=== PATIENT | male | born 1960 | race Caucasian/White ===

== ENCOUNTER 2022-04-04 21:04 | Observation (INO) | payer BC, SELFPAY ==
[2022-04-04] VITALS (13 sets, daily range): BP systolic 157–163; BP diastolic 78–81; PULSE 80–91; RESP 17–28; TEMP 37.3; O2SAT 95–98
--- NOTE | ~2022-04-04 | XR_ITS ---
EXAMINATION: XR chest 2V DATE: 04/05/2022 03:22 INDICATION: Weakness TECHNIQUE: AP and lateral views of the chest are obtained. COMPARISON: 09/04/2013 FINDINGS: The lungs are free of acute opacities. No pleural effusion or pneumothorax. The cardiomedia stinal silhouette is normal. There is moderate thoracic spondylosis. 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 IMPRESSION: 1. No acute cardiopulmonary abnormality. Reviewed, dictated and finalized at location B.
--- NOTE | ~2022-04-04 | CT_ITS ---
EXAMINATION: CT BRAIN W/O DATE: 04/05/2022 03:19 INDICATION: [employer], weakness after fall. TECHNIQUE: Computed tomography (CT) of the head was performed without intravenous contrast. The dose- length product was 605.33 mGy-cm. Automated exposure control and iterative reconstruction technique w ere employed. COMPARISON: No prior studies for comparison. FINDINGS: Normal brain parenchymal volume for age. Normal medrano-white differentiation. No acute intrac ranial hemorrhage, infarction, mass or mass effect. No ventriculomegaly or midline shift. Midline sagittal images demonstrate a normal corpus callosum, c raniovertebral junction and sella turcica. Basilar cisterns are patent. Paranasal sinuses and mastoids are pneumatized. No depressed skull fractures. IMPRESSION: 1. No acute intracranial abnormality. Reviewed, dictated and finalized at location A.
--- NOTE | 2022-04-04 21:16 | ED.GENADULT ---
HPI - General Adult General Chief complaint: Weakness Stated complaint: WEAKNESS Time Seen by Provider: 04/04/22 21:14 History of Present Illness HPI narrative: 61-year-old male presented to the emergency department for evaluation of 2 days of generalized weakness with associated diarrhea. Patient denies any chest pain or shortness of breath. Patient denies any nausea vomiting patient denies any associate abdominal pain. Patient states he does have history of hypertension and diabetes. Patient states his diabetes is poorly controlled and does not check his blood sugars. Related Data Allergies Allergy/AdvReac Type Severity Reaction Status Date / Time iodine Allergy Swelling Verified 04/04/22 21:19 of the Eye 1 SEAFOOD Allergy Unknown Swelling Uncoded 04/04/22 21:19 of the Eye Review of Systems Review of Systems: CONSTITUTIONAL: Increased generalized weakness EYES: Denies visual changes, redness, or discharge. ENT: Denies rhinorrhea, congestion, sore throat, or otalgia. CARDIOVASCULAR: Denies chest pain, palpitations, or edema. RESPIRATORY: Denies cough or dyspnea. GASTROINTESTINAL: Denies abdominal pain but does report diarrhea, see HPI GENITOURINARY: Denies dysuria or hematuria. SKIN: Denies rash or itching. MUSCULOSKELETAL: Denies back pain, joint pain, or myalgia. NEUROLOGIC: Denies headache, numbness, or weakness. Exam Narrative: APPEARANCE: Well appearing, no pain, no distress, well-nourished. HEAD: normocephalic, atraumatic. EYES: PERRLA/EOMI, conjunctivae clear. NOSE: Normal no drainage EARS:TMS clear with good light reflex. NECK: Supple. No adenopathy, no masses. RESPIRATORY: Airway patent, respirations nonlabored. Clear to auscultation bilaterally, no rales, rhonchi, wheezing. CARDIOVASCULAR: Regular rate and rhythm without murmurs rubs or gallops. ABDOMINAL: Soft, nontender, nondistended, normal bowel sounds MUSCULOSKELETAL: Moves all extremities. Strength/ROM intact, No edema, No calf tenderness. NEURO: Alert. Cranial nerves II through XII intact. Good gait. Good coordination SKIN: Warm, dry. Normal Color Course Course Emergency Course: On patient's initial ambulation he still felt unsteady with his gait. Patient was treated with another liter of normal saline. Prior to ambulation patient states he felt improved. Patient did slip from the toilet while attempting to wipe himself. Patient denies any pain or injury from this. Patient's gait is too unsteady for discharge to home. Some of the patient's gait instability may be secondary to underlying neuropathy from his poorly controlled diabetes. Case was discussed with the hospitalist. Prior to admission a CT head and chest x-ray are being performed. X-ray: Cardiomegaly. No acute cardiopulmonary abnormality. CT showed no acute hemorrhage or infarct. Case was rediscussed with the hospitalist and patient will be admitted to [facility].. Vital Signs Vital signs: Vital Signs Temperature 99.2 F 04/04/22 21:10 Pulse Rate 91 04/04/22 21:10 Respiratory Rate 17 04/04/22 21:10 Blood Pressure 157/81 H 04/04/22 21:10 Pulse Oximetry 95 04/04/22 21:10 Oxygen Delivery Room Air 04/04/22 21:10 Temperature 99.2 F 04/04/22 21:10 Pulse Rate 85 04/05/22 00:03 Respiratory Rate 11 L 04/05/22 00:03 Blood Pressure 155/83 H 04/05/22 00:03 Pulse Oximetry 97 04/05/22 00:03 Oxygen Delivery Room Air 04/04/22 21:10 Medical Decision Making Vital Signs Vital Signs: Vital Signs Temperature 99.2 F 04/04/22 21:10 Pulse Rate 91 04/04/22 21:10 Respiratory Rate 17 04/04/22 21:10 Blood Pressure 157/81 H 04/04/22 21:10 Pulse Oximetry 95 04/04/22 21:10 Oxygen Delivery Room Air 04/04/22 21:10 Temperature 99.2 F 04/04/22 21:10 Pulse Rate 85 04/05/22 00:03 Respiratory Rate 11 L 04/05/22 00:03 Blood Pressure 155/83 H 04/05/22 00:03 Pulse Oximetry 97 04/05/22 00:03 Oxygen Delivery Room Air
[2022-04-04 21:32] LABS: Basophils Absolute Auto 0.1 K/mm3 (0.0-0.1); Basophils Percent Auto 0.4 % (0.2-1.2); Hematocrit 42.3 % (42.0-52.0); Hemoglobin 14.7 g/dL (14.0-18.0); Immature Granulocyte Absolute 0.16 K/mm3 (0.00-0.031); Immature Granulocyte Percent A 0.8 % (0-0.5); Lymphocytes Absolute Auto 1.07 K/mm3 (0.9-3.2); Lymphocytes Percent Auto 5.6 % (18.3-44.2); Mean Corpuscular HGB Conc 34.8 g/dl (32-36); Mean Corpuscular Hemoglobin 29.6 pg (26-34); Mean Corpuscular Volume 85.1 fl (80-100); Mean Platelet Volume 9.1 fl (7.4-10.4); Monocytes Absolute Auto 1.1 K/mm3 (0.1-0.6); Monocytes Percent Auto 5.5 % (2.6-8.5); Neutrophils Absolute Auto 16.8 K/mm3 (1.3-6.7); Neutrophils Percent Auto 87.7 % (45.5-73.1); Platelet Count Result 203 k/mm3 (150-375); Red Blood Count 4.97 M/mm3 (4.6-6.20); Red Cell Distribution Width 12.9 % (11.5-14.5); White Blood Count 19.2 K/mm3 (4.5-10.0)
[2022-04-04 21:56] LABS: Lactic Acid Reflex 3.4 mmol/L (0.7-2.0)
[2022-04-04 21:57] LABS: Alanine Aminotransferase 24 U/L (6-50); Albumin Level 3.8 g/dL (3.5-5.1); Alkaline Phosphatase 75 U/L (38-126); Anion Gap 12 mmol/L (8-16); Aspartate Amino Transferase 24 U/L (17-59); Bilirubin,Total 0.7 mg/dL (0.2-1.3); Blood Urea Nitrogen 20 mg/dL (9-20); Calcium 8.2 mg/dL (8.4-10.2); Carbon Dioxide 20 mmol/L (22-30); Chloride 98 mmol/L (98-107); Estimated CRCL calculation 77 ml/min; Estimated Glomerular Filt Rate > 60; Glucose 340 mg/dL (65-110); Lipase 112 U/L (23-300); Potassium 3.6 mmol/L (3.4-5.0); Sodium 130 mmol/L (137-145)
[2022-04-04] MEDS: SODIUM CHLORIDE 0.9% IV 1,000 ML 999 ML IV CONT (22:05)
[2022-04-04 22:10] LABS: Appearance Urine Clear (Clear); Bilirubin Urine Negative (Negative); Blood Urine Negative (Negative); Color Urine Yellow (Yellow); Glucose Urine UA 3+ mg/dL (Negative); Ketones Urine 1+ mg/dL (Negative); Leukocyte Esterase Ur Negative LEU/UL (Negative); Nitrate Urine Negative (Negative); Protein Urine 2+ mg/dL (Negative); Specific Grav Ur 1.025 (1.001-1.035); Urobilinogen Urine 0.2 mg/dL (<2.0); pH Urine 5.5 (5.0-9.0)
[2022-04-04 22:12] LABS: SARS-CoV-2 RNA PCR Negative
[2022-04-04 22:16] LABS: Mucus Urine Rare /lpf; RBC Urine 0-2 /hpf (0-2); Squamous Epithelial Cell Urine Rare /hpf (Few); WBC Urine 0-3 /hpf
[2022-04-04 22:22] LABS: Add Urine Microscopic? YES
[2022-04-04 23:45] LABS: Toxigenic C. Diff NEGATIVE (NEGATIVE)
[2022-04-05] VITALS (44 sets, daily range): BP systolic 125–155; BP diastolic 56–89; PULSE 60–85; RESP 11–31; TEMP 36.5–37.4; O2SAT 91–100; BMI 31.3
[2022-04-05] MEDS: SODIUM CHLORIDE 0.9% IV 1,000 ML 999 ML IV CONT (00:08)
[2022-04-05 00:29] LABS: Reflex Lactic Acid Yes or No Add Lactic
[2022-04-05 00:52] LABS: Lactic Acid 2.1 mmol/L (0.7-2.0)
[2022-04-05] MEDS: MECLIZINE HCL 25 MG TABLET PO (03:25)
--- NOTE | 2022-04-05 06:39 | ADMGEN ---
This patient, Bienvenido Trent, was admitted to 3 Med Surg Room 306-02. Patient/family oriented to hospital policies and general routines including ID bracelet, bed and alarms, visiting hours, pain management, procedures, bathroom and other care routines, personal items, smoking policy, room service/diet, and visiting hours. Information on how to activate the Rapid Response Team has been discussed. Patient/Family are encouraged to report perceived risks to care and to ask questions if they do not understand what they are told or what they should do.
--- NOTE | 2022-04-05 11:54 | PC.NURSE ---
To GI lab via [employer] @ [id number].
[2022-04-05] MEDS: amLODIPine BESYLATE 5 MG TABLET 10 MG BY MOUTH (12:06)
[2022-04-05] MEDS: VALSARTAN 160 MG TABLET 320 MG PO (12:06)
[2022-04-05] MEDS: allopurinoL 100 MG TABLET PO ×2 (12:06→17:20)
--- NOTE | 2022-04-05 12:50 | PM.IMHP ---
H&P: HPI History of Present Illness Date/Time: 04/05/22 12:50 Chief Complaint: 61-year-old male presented to the emergency department for evaluation of 2 days of generalized weakness with associated diarrhea.? Patient denies any chest pain or shortness of breath.? Patient denies any nausea vomiting patient denies any associate abdominal pain. Patient reports prior to this the day before yesterday he felt fine. And her later last week he is able to cut his grass which is 2 acres. No prior history of anything like this happen. Also to note patient had sinus infection recent history with 2 antibiotics and steroids. He finished these a couple days prior to the incident. Patient states he does have history of hypertension and diabetes.? Patient states his diabetes is poorly controlled and does not check his blood sugars Review of Systems Review of Systems: 10 point ROS negative except as stated in HPI / Subjective PMFSH Social History Social History Smoking status: Current every day smoker Tobacco type: cigars Second hand tobacco smoke exposure: Yes Additional smoking assessment comments: 2 cigars daily Alcohol intake: never Substance use: never Living arrangements: alone Gender identity (if verbalized by the patient): Male Spiritual care concerns: No Meds Home Medications and Allergies Home Medications Medication Instructions Recorded Confirmed Type allopurinol 100 mg tablet 100 tablet PO BID 04/05/22 04/05/22 History amlodipine 10 mg-valsartan 320 mg 1 tablet PO DAILY 04/05/22 04/05/22 History tablet dapagliflozin 10 mg tablet 1 tablet PO DAILY 04/05/22 04/05/22 History ([facility]) metformin 500 mg tablet,extended 2 tablet PO BID 04/05/22 04/05/22 History release 24 hr ondansetron 4 mg disintegrating 4 mg PO Q6H PRN nausea and 04/05/22 Rx tablet vomiting #14 tabs Allergies Allergy/AdvReac Type Severity Reaction Status Date / Time iodine Allergy Swelling Verified 04/04/22 21:19 of the Eye 1 SEAFOOD Allergy Unknown Swelling Uncoded 04/04/22 21:19 of the Eye Vital Signs Vital Signs - 24 hr 04/04/22 21:10 04/04/22 21:16 04/04/22 21:20 Temperature 99.2 F Pulse Rate 91 91 89 Respiratory Rate 17 25 H Blood Pressure 157/81 H 163/78 H Pulse Oximetry 95 95 Oxygen Delivery Room Air 04/04/22 21:20 04/04/22 21:30 04/04/22 21:56 Temperature Pulse Rate 90 88 91 Respiratory Rate 27 H 18 28 H Blood Pressure Pulse Oximetry 96 95 Oxygen Delivery 04/04/22 22:00 04/04/22 22:15 04/04/22 22:30 Temperature Pulse Rate 85 83 81 Respiratory Rate 18 21 H 22 H Blood Pressure Pulse Oximetry 96 95 97 Oxygen Delivery 04/04/22 22:45 04/04/22 23:00 04/04/22 23:15 Temperature Pulse Rate 82 81 82 Respiratory Rate 21 H 22 H 19 Blood Pressure Pulse Oximetry 98 96 96 Oxygen Delivery 04/04/22 23:30 04/04/22 23:45 04/05/22 00:01 Temperature Pulse Rate 83 80 Respiratory Rate 17 21 H Blood Pressure Pulse Oximetry 95 96 97 Oxygen Delivery 04/05/22 00:03 04/05/22 00:04 04/05/22 00:15 Temperature Pulse Rate 85 83 80 Respiratory Rate 11 L 19 30 H Blood Pressure 155/83 H Pulse Oximetry 97 96 93 Oxygen Delivery 04/05/22 00:16 04/05/22 00:30 04/05/22 00:31 Temperature Pulse Rate 81 79 82 Respiratory Rate 25 H 26 H 28 H Blood Pressure 134/58 L 147/73 H Pulse Oximetry 95 94 95 Oxygen Delivery 04/05/22 00:45 04/05/22 00:46 04/05/22 01:00 Temperature Pulse Rate 79 79 79 Respiratory Rate 30 H 20 25 H Blood Pressure 135/73 134/68 Pulse Oximetry 97 95 97 Oxygen Delivery 04/05/22 01:01 04/05/22 01:15 04/05/22 01:16 Temperature Pulse Rate 77 79 76 Respiratory Rate 17 24 H 27 H Blood Pressure 135/71 Pulse Oximetry 100 95 94 Oxygen Delivery 04/05/22 01:30 04/05/22 01:31 04/05/22 01:45 Temperature Pulse
[2022-04-05 16:53] LABS: Glucose Point of Care 224 mg/dl (65-105)
[2022-04-05] MEDS: ACETAMINOPHEN 325 MG TABLET 650 MG PO (17:20)
[2022-04-05] MEDS: INSULIN ASPART (*BKC) 100 UNITS/ML SUB-Q (17:21)
[2022-04-05 20:05] LABS: Glucose Point of Care 295 mg/dl (65-105)
[2022-04-06 06:00] VITALS: BP 157/90; PULSE 72; RESP 18; TEMP 36.2; O2SAT 97
[2022-04-06 08:10] LABS: Glucose Point of Care 244 mg/dl (65-105)
[2022-04-06] MEDS: INSULIN ASPART (*BKC) 100 UNITS/ML SUB-Q ×2 (09:35→11:41)
[2022-04-06] MEDS: allopurinoL 100 MG TABLET PO ×2 (09:35→17:34)
[2022-04-06] MEDS: amLODIPine BESYLATE 5 MG TABLET 10 MG BY MOUTH (09:36)
[2022-04-06] MEDS: VALSARTAN 160 MG TABLET 320 MG PO (09:36)
[2022-04-06 10:01] LABS: Hematocrit 41.8 % (42.0-52.0); Hemoglobin 13.9 g/dL (14.0-18.0); Mean Corpuscular HGB Conc 33.3 g/dl (32-36); Mean Corpuscular Volume 87.3 fl (80-100); Mean Platelet Volume 9.1 fl (7.4-10.4); Platelet Count Result 178 k/mm3 (150-375); Red Blood Count 4.79 M/mm3 (4.6-6.20); Red Cell Distribution Width 12.9 % (11.5-14.5); White Blood Count 8.6 K/mm3 (4.5-10.0)
[2022-04-06 10:31] LABS: Anion Gap 10 mmol/L (8-16); Blood Urea Nitrogen 12 mg/dL (9-20); Calcium 8.2 mg/dL (8.4-10.2); Carbon Dioxide 20 mmol/L (22-30); Chloride 106 mmol/L (98-107); Estimated CRCL calculation 97 ml/min; Estimated Glomerular Filt Rate > 60; Glucose 408 mg/dL (65-110); Potassium 3.2 mmol/L (3.4-5.0); Sodium 136 mmol/L (137-145)
[2022-04-06 11:19] LABS: Glucose Point of Care 369 mg/dl (65-105)
[2022-04-06 11:26] VITALS: PULSE 78; O2SAT 99
[2022-04-06 14:00] VITALS: BP 141/77; PULSE 74; RESP 16; TEMP 36.1; O2SAT 96
--- NOTE | 2022-04-06 16:06 | PM.IMPN ---
Progress Note: A&P Assessment and Plan (1) Diarrhea: Code(s): R19.7 - Diarrhea, unspecified Status: Acute Assessment and Plan: Workup still pending, C diff is negative. Continue supportive care. If diarrhea persists consider rechecking see deficits he did have antibiotic exposure. 04/06/2022 interval history: patient with diarrhea C diff is negative, stool is positive for campylobacter, however patient frequency of stool is improving and denies abdominal pain nausea or vomiting tolerating his diet, her white counts trending, will continue hydration and monitor patient and further recommendation to follow (2) General weakness: Code(s): R53.1 - Weakness Status: Acute Assessment and Plan: PTOT Prior to this viral illness or diarrheal illness he had been doing well without any weakness or excessive fatigue. (3) Diabetes: Code(s): E11.9 - Type 2 diabetes mellitus without complications Status: Acute Assessment and Plan: Monitor blood sugars (4) Gout: Code(s): M10.9 - Gout, unspecified Status: Acute Assessment and Plan: Continue home med (5) Hypertension: Code(s): I10 - Essential (primary) hypertension Status: Acute Assessment and Plan: Continue home med Subjective Date/time seen: 04/06/22 16:06 04/06/2022 interval history: patient with diarrhea C diff is negative, stool is positive for campylobacter, however patient frequency of stool is improving and denies abdominal pain nausea or vomiting tolerating his diet, her white counts trending, will continue hydration and monitor patient and further recommendation to follow Review of Systems Review of Systems: 10 point ROS negative except as stated in HPI / Subjective Exam Narrative: moderately obese Patient is comfortable, NAD HEENT: eyes are clear and none icteric LUNGS: normal respiratory effort ABD: BS+, Soft and nontender Lower extremities: no edema SKIN: nonjaundiced Neuro: grossly intact. Objective Data Vital Signs Vital Signs: Vital Signs - 24 hr 04/05/22 17:20 04/05/22 22:00 04/06/22 06:00 Temperature 98.7 F 97.7 F 97.2 F L Pulse Rate 60 72 Respiratory Rate 16 18 Blood Pressure 125/72 157/90 H Pulse Oximetry 98 97 Oxygen Delivery 04/06/22 11:26 04/06/22 14:00 Temperature 96.9 F L Pulse Rate 78 74 Respiratory Rate 16 Blood Pressure 141/77 H Pulse Oximetry 99 96 Oxygen Delivery Room Air Intake/Output Intake/Output: Intake & Output 04/03/22 04/04/22 04/05/22 04/06/22 23:59 23:59 23:59 23:59 Intake Total 1000 2279 1510 Output Total 0 Balance 1000 2279 1510 Meds/Results Medications: Active Medications Generic Name Dose Route Start Last Admin Trade Name Freq PRN Reason Stop Dose Admin Acetaminophen 650 mg 04/05/22 17:00 04/05/22 17:20 Acetaminophen 325 Mg Tablet PO 650 mg Q6H PRN Administration Mild Pain (1-3) or Fever Allopurinol 100 mg 04/05/22 09:00 04/06/22 09:35 Allopurinol 100 Mg Tablet PO 100 mg BID BEST Administration Amlodipine Besylate 10 mg 04/05/22 09:00 04/06/22 09:36 Amlodipine Besylate 5 Mg Tablet BY MOUTH 10 mg DAILY BEST Administration Dextrose 12.5 gm 04/05/22 12:54 Dextrose 50% 25 Gm/50 Ml Syringe IV PUSH PRN PRN Hypoglycemia Protocol Glucagon 1 mg 04/05/22 12:54 Glucagon For Inj 1 Mg Vial IM PRN PRN Hypoglycemia Protocol Glucose 15 gm 04/05/22 12:54 Glucose Oral Gel 15 Gm Of Glucse In 37.5 Gm Tube PO PRN PRN Hypoglycemia Protocol Dextrose 1,000 mls @ 100 mls/hr 04/05/22 12:54 Dextrose 5% 1,000 Ml IVPB PRN PRN Hypoglycemia Protocol Insulin Aspart 2 - 5 units 04/05/22 12:00 04/06/22 11:41 Insulin Aspart (*Bkc) 100 Units/Ml SUB-Q 5 units TIDWM BEST Administration Protocol Ondansetron HCl 4 mg 04/05/22 04:01 Ondansetron Inj 4 Mg/2 Ml Vi
[2022-04-06 17:59] LABS: Glucose Point of Care 176 mg/dl (65-105)
[2022-04-06 22:00] VITALS: BP 157/83; PULSE 80; RESP 16; TEMP 37.7; O2SAT 100
[2022-04-07 06:00] VITALS: BP 125/60; PULSE 62; RESP 16; TEMP 36.6; O2SAT 97
[2022-04-07 07:47] LABS: Glucose Point of Care 184 mg/dl (65-105)
[2022-04-07 08:00] LABS: Hemoglobin 13.2 g/dL (14.0-18.0); Mean Corpuscular HGB Conc 34.7 g/dl (32-36); Mean Corpuscular Hemoglobin 29.3 pg (26-34); Mean Corpuscular Volume 84.4 fl (80-100); Mean Platelet Volume 9.3 fl (7.4-10.4); Platelet Count Result 202 k/mm3 (150-375); Red Cell Distribution Width 12.5 % (11.5-14.5); White Blood Count 8.9 K/mm3 (4.5-10.0)
[2022-04-07 08:11] LABS: Anion Gap 4 mmol/L (8-16); Blood Urea Nitrogen 7 mg/dL (9-20); Calcium 8.2 mg/dL (8.4-10.2); Carbon Dioxide 29 mmol/L (22-30); Chloride 106 mmol/L (98-107); Estimated CRCL calculation 97 ml/min; Estimated Glomerular Filt Rate > 60; Glucose 178 mg/dL (65-110); Magnesium 1.8 mg/dL (1.6-2.3); Potassium 3.4 mmol/L (3.4-5.0); Sodium 139 mmol/L (137-145)
--- NOTE | 2022-04-07 09:19 | PM.DS ---
DS: Admitting Diagnosis Discharge Date 04/07/2022 Admitting Diagnosis diarrhea DS: Discharge Diagnosis Discharge Diagnosis (1) Diarrhea: Code(s): R19.7 - Diarrhea, unspecified Status: Acute Assessment and Plan: Workup still pending, C diff is negative. Continue supportive care. If diarrhea persists consider rechecking see deficits he did have antibiotic exposure. 04/06/2022 interval history: patient with diarrhea C diff is negative, stool is positive for campylobacter, however patient frequency of stool is improving and denies abdominal pain nausea or vomiting tolerating his diet, her white counts trending, will continue hydration and monitor patient and further recommendation to follow (2) General weakness: Code(s): R53.1 - Weakness Status: Acute Assessment and Plan: PTOT Prior to this viral illness or diarrheal illness he had been doing well without any weakness or excessive fatigue. (3) Diabetes: Code(s): E11.9 - Type 2 diabetes mellitus without complications Status: Acute Assessment and Plan: Monitor blood sugars (4) Gout: Code(s): M10.9 - Gout, unspecified Status: Acute Assessment and Plan: Continue home med (5) Hypertension: Code(s): I10 - Essential (primary) hypertension Status: Acute Assessment and Plan: Continue home med DS: Summary Hospital Course Reason for hospitalization: Chief Complaint: 61-year-old male presented to the emergency department for evaluation of 2 days of generalized weakness with associated diarrhea.? Patient denies any chest pain or shortness of breath.? Patient denies any nausea vomiting patient denies any associate abdominal pain. Patient reports prior to this the day before yesterday he felt fine.? And her later last week he is able to cut his grass which is 2 acres.? No prior history of anything like this happen.? Also to note patient had sinus infection recent history with 2 antibiotics and steroids.? He finished these a couple days prior to the incident. Patient states he does have history of hypertension and diabetes.? Patient states his diabetes is poorly controlled and does not check his blood sugars Hospital Course: ?patient with diarrhea C diff is negative,? stool is positive for campylobacter,? however patient frequency of stool is improving? and denies abdominal pain nausea or vomiting tolerating his diet,? his white counts trending down will continue hydration and monitor patient and further recommendation to follow today patient remains clinically stable his bowel movements have improved, he is able to tolerate his diet will discharge the patient today Time Spent with Patient Time attestation: Total time spent providing and/or coordinating discharge services: Exam Narrative: moderately obese Patient is comfortable, NAD HEENT: eyes are clear and none icteric LUNGS: normal respiratory effort ABD: BS+, Soft and nontender Lower extremities: no edema SKIN: nonjaundiced Neuro: grossly intact. DS: Data Data Completed and Pending Labs on day of discharge: Labs from last 24 hours 04/07/22 04/07/22 04/07/22 07:46 07:46 07:45 WBC 8.9 RBC 4.50 L Hgb 13.2 L Hct 38.0 L MCV 84.4 MCH 29.3 MCHC 34.7 RDW 12.5 Plt Count 202 MPV 9.3 Sodium 139 Potassium 3.4 Chloride 106 Carbon Dioxide 29 Anion Gap 4 L BUN 7 L D Creatinine 0.70 Estim Creat Clear Calc 97 Estimated GFR > 60 Glucose 178 H POC Capillary Glucose 184 H Calcium 8.2 L Magnesium 1.8 04/06/22 04/06/22 04/06/22 16:33 11:06 09:52 WBC RBC Hgb Hct MCV MCH MCHC RDW Plt Count MPV Sodium 136 L Potassium 3.2 L Chloride 106 Carbon Dioxide 20 L Anion Gap 10 BUN 12 D Creatinine 0.70 Estim Creat Clear Calc 97 Estimated GFR > 60 Glucose 408 H POC Capillary Glucos
[2022-04-07] MEDS: VALSARTAN 160 MG TABLET 320 MG PO (09:41)
[2022-04-07] MEDS: allopurinoL 100 MG TABLET PO (09:42)
[2022-04-07] MEDS: amLODIPine BESYLATE 5 MG TABLET 10 MG BY MOUTH (09:42)
[2022-04-07] MEDS: POTASSIUM CHLORIDE 20 MEQ TABLET 40 MEQ PO (11:08)
== END 2022-04-07 11:55 | disposition home or self-care (01) ==
LOC: ANHED 04-05 02:49 → ANH3MEDSUR 04-05 06:11
PROVIDERS: Admitting Provider Internal Medicine; Emergency Provider Emergency Medicine; Visit Provider Family Medicine
DX: R19.7 Diarrhea, unspecified (principal); R53.1 Weakness; I10 Essential (primary) hypertension; E11.9 Type 2 diabetes mellitus without complications; M10.9 Gout, unspecified; F17.290 Nicotine dependence, other tobacco product, uncomplicated; Z79.84 Long term (current) use of oral hypoglycemic drugs; Z20.822 Contact with and (suspected) exposure to COVID-19
CPT/HCPCS: 36415; 70450; 71046; 80048; 80053; 81001; 82948; 83605; 83690; 83735; 85025; 85027; 87045; 87269; 87272; 87427; 87493; 89055; 96360; 96361; 97110; 97161; 97165; 97530; 97535; 99285; A9270; C9803; G0378; J1815; J7030; U0003; U0005

== ENCOUNTER 2025-04-04 11:55 | Emergency (ER) | payer MEDICARE, SELFPAY ==
--- NOTE | ~2025-04-04 | XR_ITS ---
HISTORY: Avulsion from [place] COMPARISON: None TECHNIQUE: 2 views of the right first digit were performed. FINDINGS: No acute displaced fracture. Joint spaces are narrowed with osteophyte formation versus a possible avulsion fracture of the proxim al radial margin of the proximal phalanx of the first digit. The alignment is maintained. Soft tissues are unremarkable without radiopaque foreign body. Age-appropriate mineralization. IMPRESSION: Findings which may be secondary to degenerative disease versus an acute avulsion fractur e along the proximal radial margin of the proximal phalanx of the first digit. Reviewed, dictated and finalized at location A. IMPRESSION: Findings which may be secondary to degenerative disease versus an acute avulsion fracture along the proximal radial margin of the proximal phalan x of the first digit.
[2025-04-04 11:55] VITALS: BP 164/77; PULSE 83; RESP 16; TEMP 36.3; O2SAT 99
--- OUTSIDE RECORDS SUMMARY | 2025-04-04 11:57 | XMS_ITS | Data Portability ---
Author Organization [facility] [employer], Main Office Address [address] [place] [address] Assessment No assessment recorded. Plan of Treatment Reminders Order Date Submit Date Provider Last Modified By Organization Details Last Modified Time Details Appointments None recorded. Lab glycohemog lobin, total, blood 2023 024 [facility] (Lab), [address] [place], [address], 4 15:41:02 hemoglobin A1C, fingerstic k [address] [place], [place], [address], 4 15:22:19 PSA, total, serum or plasma 2022 023 [facility] (Lab), [address] [place], [address], 3 19:53:57 hemoglobin A1C, fingerstic k [address] [place], [place], [address], 3 11:37:47 microalbum in, urine 2022 023 [facility] (Lab), [address] [place], [address], 3 18:58:17 lipid panel, serum 2022 023 [facility] (Lab), [address] [place], [address], 3 18:59:23 CMP, serum or plasma 2022 023 [facility] (Lab), [address] [place], [address], 3 18:59:29 Referral None recorded. Procedures None recorded. Surgeries None recorded. Imaging None recorded. Medication Orders gabapentin 300 mg capsule 2023 024 [id number] [address] [place] [address], [address], 4 12:35:23 valacyclov ir 1 gram tablet 2023 024 [facility], [address] [place], [address], 4 12:51:17 Depo-Medro l 80 mg/mL suspension for injection 2023 024 [email or web address] Not available 14:37:34 amoxicilli n 875 mg-potassi um clavulanat e 125 mg tablet 2023 024 [email or web address] [facility] #2510, [address] [place], [address], 4 12:30:01 ibuprofen 800 mg tablet 2023 024 [facility]acy #2510, [address] [place], [address], 4 11:35:40 Trulicity 0.75 mg/0.5 mL subcutaneo us pen injector 2023 024 [email or web address] 00 [facility] #2510, [address] [place], [address], 4 11:38:08 allopurino l 300 mg tablet 2023 024 [facility] #2510, [address] [place], [address], 4 11:05:27 metformin ER 500 mg tablet,ext ended release 24 hr 2023 024 [facility] [address] [place], [address], 4 11:08:06 Ozempic 2 mg/dose (8 mg/3 mL) subcutaneo us pen injector 2023 024 [facility] [address] [place], [address], 4 11:20:36 Patient TargetsNo targets recorded. Patient Instructions Encounter Date Encounter Id Patient Instructions Last Modified By Organization Details Last Modified Time 02/06/2024 [id number] finish antibioti c . [email or web address] Not available 02/14/2024 16:48:38 Reason for Referral None Reported. Results Created Date Observation Date Name Description Value Unit Range Abnormal Flag Note LastModifiedBy Organization Detail LastModifiedTime 04/20/2004/20/2023 MICRO ALBUM IN RANDO M URINE microalbumin , urine 26.3 mg/L 0.0-16 .6 high Not Available [facility] (Lab) [address] [place], [address], 04/20/2023 18:58:17 04/20/20 23 04/20/2023 LIPID PANEL cholesterol 66 mg/dL 140-19 9 low NIH AARON NSUS RECOM MENDA TION FOR SHAHEEN STERO L: ADULT CHILD LOW RISK: <200 <170 BORDE RLINE : <200- 239 ----- HIGH RISK: >240 >200 Not Available [facility] (Lab) [address] [place], [address], 04/20/2023 18:59:23 04/20/20 23 04/20/2023 LIPID PANEL triglyceride s 63 mg/dL 0-150 NIH AARON NSUS REPOR T RECOM MENDA TION FOR TRIGL YCERI PAOLA: ADULT CHILD LOW RISK: <150 ----- BODER LINE: 150-1 99 ----- HIGH RISK: >200 ----- Not Available [facility] (Lab) [address] [place], [address], 04/20/2023 18:59:23 04/20/20 23 04/20/2023 LIPID PANEL HDL cholesterol 33 mg/dL 40- low Not Available [facility] (Lab) [address] [place], [address], 04/20/2023 18:59:23 04/20/20 23 04/20/2023 LIPID PANEL LDL cholesterol, calculated 20 mg/dL 0-130 NIH AARON NSUS REPOR T RECOM MENDA TIONS FOR LDL: ADULT CHILD LOW RISK <130 <110 (OPTI MAL LDL) <100 ----- BORDE RLINE : 130-1 59 ----- HIGH RISK: >160 >130 A TRIGL YCERI DE RESUL T >400 INVAL IDATE S THE CALCU LATIO N FOR LDL FRACT IONAT ION - THE LDL RESUL T WILL NOT BE REPOR NICOLETTE. Not Available [facility] (Lab) [address] [place], [address], 04/20/2023 18:59:23 04/20/20 23 04/20/2023 COMPR EHENS MACHO METAB OLIC PANEL sodium 138 mmol/ L 137-14 5 Not Available [facility] (Lab) [address] [place], [address], 04/20/2023 18:59:28 04/20/20 23 04/20/2023 COMPR EHENS MACHO METAB OLIC PANEL potassium 4.8 mmol/ L 3.5-5. 1 Not Available [facility] (Lab) [address] [place], [address], 04/20/2023 18:59:28 04/20/20 23 04/20/2023 COMPR EHENS MACHO METAB OLIC PANEL chloride 101 mmol/ L 98-107 Not Available [facility] (Lab) [address] [place], [address], 04/20/2023 18:59:28 04/20/20 23 04/20/2023 COMPR EHENS MACHO METAB OLIC PANEL carbon dioxide 27 mmol/ L 22-30 Not Available [facility] (Lab) [address] [place], [address], 04/20/2023 18:59:28 04/20/20 23 04/20/2023 COMPR EHENS MACHO METAB OLIC PANEL anion gap 14.8 mmol/ L 14-22 Not Available [facility] (Lab) [address] [place], [address], 04/20/2023 18:59:28 04/20/20 23 04/20/2023 COMPR EHENS MACHO METAB OLIC PANEL glucose 138 mg/dL 70-99 high Not Available [facility] (Lab) [address] [place], [address], 04/20/2023 18:59:28 04/20/20 23 04/20/2023 COMPR EHENS MACHO METAB OLIC PANEL BUN 10 mg/dL 8-19 Not Available [facility] (Lab) [address] [place], [address], 04/20/2023 18:59:28 04/20/20 23 04/20/2023 COMPR EHENS MACHO METAB OLIC PANEL creatinine 0.61 mg/dL 0.66-1 .25 low Not Available [facility] (Lab) [address] [place], [address], 04/20/2023 18:59:28 04/20/20 23 04/20/2023 COMPR EHENS MACHO METAB OLIC PANEL GFR >60 Refer ence Range : [place] [facility] GFR Healt hy Adult : >60 mL/mi n/1.7 3 m2 Chron ic Kidne y Disea se: 15-60 mL/mi n/1.7 3 m2 Kidne y Failu re: <15/m L/min /1.73 m2 www.n iddk. nih.g ov The MDRD study equat ion has not been valid ated in child lorne <18 years of age; pregn ant women ; the elder ly >85 years of age; or in some racia l or ethni c subgr oups, such as Hispa nics. Outsi de the valid ated padmini eters , estim ated GFR is less accur ate, requi ring clini aurelio judgm ent on a case- by-ca se basis . Clini aurelio inter preta tion for other races and ages must be made by the clini elva. The MDRD study equat ion has not been valid ated for the evalu ation of serum creat inine relat ed to nutri romie l statu s or medic ation usage . For perso ns <18 years of age, a pedia tric GFR calcu lator is avail able on the [facility] websi te: https ://jarad aguilar.loree de la cruz.o brad/mynor sullivan s/victor mo qi/gf r_cal culat or Not Available [facility] (Lab) [address] [place], [address], 04/20/2023 18:59:28 04/20/20 23 04/20/2023 COMPR EHENS MACHO METAB OLIC PANEL alkaline phosphatase 81 U/L 38-126 Not Available [facility] (Lab) [address] [place], [address], 04/20/2023 18:59:28 04/20/20 23 04/20/2023 COMPR EHENS MACHO METAB OLIC PANEL alanine aminotransfe rase 25 U/L 0-50 Not Available [facility] (Lab) [address] [place], [address], 04/20/2023 18:59:28 04/20/20 23 04/20/2023 COMPR EHENS MACHO METAB OLIC PANEL aspartate aminotransfe rase 32 U/L 15-46 Not Available [facility] (Lab) [address] [place], [address], 04/20/2023 18:59:28 04/20/20 23 04/20/2023 COMPR EHENS MACHO METAB OLIC PANEL bilirubin, total 0.40 mg/dL 0.20-1 .30 Not Available [facility] (Lab) [address] [place], [address], 04/20/2023 18:59:28 04/20/20 23 04/20/2023 COMPR EHENS MACHO METAB OLIC PANEL calcium 9.1 mg/dL 8.4-10 .2 Not Available [facility] (Lab) [address] [place], [address], 04/20/2023 18:59:28 04/20/20 23 04/20/2023 COMPR EHENS MACHO METAB OLIC PANEL total protein 6.7 g/dL 6.3-8. 2 Not Available [facility] (Lab) [address] [place], [address], 04/20/2023 18:59:28 04/20/20 23 04/20/2023 COMPR EHENS MACHO METAB OLIC PANEL albumin 3.9 g/dL 3.0-4. 4 Not Available [facility] (Lab) [address] [place], [address], 04/20/2023 18:59:28 04/20/20 23 04/20/2023 COMPR EHENS MACHO METAB OLIC PANEL globulin 2.8 g/dL 2.6-4. 2 Not Available [facility] (Lab) [address] [place], [address], 04/20/2023 18:59:28 04/20/20 23 04/20/2023 COMPR EHENS MACHO METAB OLIC PANEL A/G ratio 1.4 ratio 1.0-2. 0 Not Available [facility] (Lab) [address] [place], [address], 04/20/2023 18:59:28 04/20/20 23 04/20/2023 PSA SCREE N PSA medicare screen 1.61 NG/mL 0.00-4 .00 Not Available [facility] (Lab) [address] [place], [address], 04/20/2023 19:53:57 04/20/20 23 04/20/2023 hemog lobin A1C, finge rstic k HgbA1C 6.7 Not Available [address] [place], [place], [address], 04/20/2023 11:25:49 10/10/19 24 10/10/2023 hemog lobin A1C, finge rstic k HgbA1C 7.8 Not Available [address] [place], [place], [address], 10/10/2023 11:00:19 03/11/20 24 03/11/2024 MRI, head + neck + orbit s, w/wo contr ast No observ ation record ed. [email or web address] [facility] [address] [place], [address], 08/26/2024 11:22:21 03/11/20 24 03/11/2024 MRI, head + neck + orbit s, w/wo contr ast No observ ation record ed. [email or web address] [facility] [address] [place], [address], 08/23/2024 17:14:08 Result Notes None recorded. Problems Name Problem SNOMED Code Status Onset Date Resolution Date Notes Provider Name and Address Organization Details Recorded Time Pain in left sacroiliac joint 9069062083542 9102 Active 2020 Not Available [facility] 4 06:55:23 Pain in throat 029038410 Active Not Available [facility] 4 06:55:23 Steatotic liver disease 473242720 Active 2017 Not Available [facility] 4 06:55:23 Lumbar sprain 875810273 Active Not Available [facility] 4 06:55:23 Pneumonia 658990412 Active Not Available [facility] 4 06:55:23 Fluid level behind tympanic membrane Active Not Available [facility] 4 06:55:23 Retinal disorder 33487672 Active 2018 Not Available [facility] 4 06:55:23 Pain in left knee Active 2020 Not Available [facility] 4 06:55:23 Hyperurice josep 11041174 Active Not Available [facility] 4 06:55:23 Chronic maxillary sinusitis 61976186 Active 2021 Not Available [facility] 4 06:55:23 Sinusitis 73115465 Active Not Available [facility] 4 06:55:23 Hypertensi ve disorder 02684103 Active Not Available [facility] 4 06:55:23 Fever 010405961 Active Not Available [facility] 4 06:55:23 Chronic sinusitis 54528824 Active 2021 Not Available [facility] 4 06:55:23 Obese 299373722 Active 2017 Not Available [facility] 4 06:55:23 Onychomyco sis 071255185 Active 2017 Not Available [facility] 4 06:55:23 Uncontroll ed type 2 diabetes mellitus 451506575 Active 2020 Not Available [facility] 4 06:55:23 Essential hypertensi on 49340916 Active 2017 Not Available [facility] 4 06:55:23 Hemorrhoid s 11343915 Active Not Available [facility] 4 06:55:23 Diabetes mellitus 80078868 Active Not Available [facility] 4 06:55:23 Posterior rhinorrhea 03660650 Active Not Available [facility] 4 06:55:23 Fatigue 55668649 Active Not Available [facility] 4 06:55:23 Gout 95069252 Active 2017 Not Available [facility] 4 06:55:23 Right upper quadrant pain 060803215 Active 2022 Not Available [facility] 4 06:55:23 Type 2 diabetes mellitus without complicati on 537636864 Active 2022 Not Available [facility] 4 06:55:23 Hyperlipid emia 81174839 Active 2022 Not Available [facility] 4 06:55:23 Headache 92757824 Active 2022 Not Available [facility] 4 06:55:23 Lesion of tongue 186169259 Active 2022 Not Available [facility] 4 06:55:23 Acute otitis media 9863573 Active 2023 BRYAN Sinclair [address], [place], [address] , [employer] 4 11:34:07 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 Procedures Surgical History Date Name Laterality Status Provider Name and Address Organization Details Recorded Time 05/30/20 22 ENDOSCOPY, NASAL/SINUS, W/ MAXILLARY ANTROSTOMY & TISSUE REMOVAL (SURG) completed Not Available [facility] 11/30/2022 01:08:29 Colonoscopy completed Not Available [facility] 11/30/2022 00:53:09 Orthopedic Surgery completed Not Available [facility] 11/30/2022 00:53:09 Imaging Results None recorded. Procedure Notes None recorded. Medical Equipment None Reported. Allergies Allergen ID Allergen Name Allergen Category Reaction Reaction Severity Criticality Documentation Date Start Date Code Code System Note Provider Name and Address Organization Details Recorded Time 4788 iodine medicatio n Not available Not available Not available 11/30/2022 5933 RxNorm Not Available [facility] 3 01:08:07 Medications Name Sig Start Date Stop Date Status Note LastModified by Organization Details LastModified Time losartan 50 mg tablet TAKE 1 TABLET BY MOUTH EVERY DAY active Not Available Not Available No t Available cyclobenzap rine 10 mg tablet Take 1 tablet 3 times a day by oral route. active Not Available Not Available No t Available metformin 500 mg tablet TAKE 2 TABLETS BY MOUTH TWICE A DAY 02/22 completed Not Available Not Available Not Available prednisone 10 mg tablet Take 3 tablets every day by oral route for 5 days. active Not Available Not Available No t Available ipratropium 0.5 mg-albutero l 3 mg (2.5 mg base)/3 mL nebulizatio n soln active hic#; 0487- 0201- 03 Not Available Not Available Not Available Anusol-HC 2.5 % rectal cream with applicator Insert 1 applicati on every day by rectal route for 7 days. 12/27 completed Not Available Not Available Not Available azithromyci n 250 mg tablet TAKE 2 TABLETS BY MOUTH TODAY, THEN TAKE 1 TABLET DAILY FOR 4 DAYS active Not Available Not Available No t Available ibuprofen 800 mg tablet TAKE 1 TABLET 3 TIMES A DAY BY ORAL ROUTE WITH MEAL(S) FOR 30 DAYS. active Not Available Not Available No t Available valacyclovi r 1 gram tablet TAKE 1 TABLET BY MOUTH EVERY 12 HOURS FOR 10 DAYS active Not Available Not Available No t Available Celestone Soluspan 6 mg/mL suspension for injection active ndc#: 0085- 0566- 05 Not Available Not Available Not Available Keflex 500 mg capsule Take 1 capsule every 12 hours by oral route for 10 days. active Not Available Not Available No t Available prednisone 20 mg tablet PLEASE SEE ATTACHED FOR DETAILED DIRECTION S 02/19 completed Not Available Not Available Not Available promethazin e 6.25 mg-codeine 10 mg/5 mL syrup Take 1-2tsp EVERY 6 HOURS PRN active Not Available Not Available No t Available allopurinol 100 mg tablet TAKE 1 TABLET BY MOUTH TWICE A DAY 04/20 completed Not Available Not Available Not Available ciprofloxac in 500 mg tablet TAKE 1 TABLET BY MOUTH EVERY 12 HOURS FOR 10 DAYS 02/19 completed Not Available Not Available Not Available sulfamethox azole 800 mg-trimetho prim 160 mg tablet 05/17 completed Not Available Not Available Not Available tramadol 50 mg tablet Take 1 tablet every 6 hours by oral route. active Not Available Not Available No t Available glimepiride 2 mg tablet Take 1 tablet every day by oral route as directed for 30 days. active Not Available Not Available No t Available Depo-Medrol 80 mg/mL suspension for injection Take 1 mL by injection route. 2023 active Not Available Not Available Not Avai lable prednisone 10 mg tablets in a dose pack Take 1 tab by mouth, 3 times a day for 3 daysTake 1 tab by mouth 2 times a day for 2 daysTake 1 tab by mouth once a day for 1 day 04/21 completed Not Available Not Available Not Available meloxicam 7.5 mg tablet TAKE 1 TABLET(S) EVERY DAY BY ORAL ROUTE FOR 30 DAYS. active Not Available Not Available No t Available amoxicillin 875 mg tablet TAKE 1 TABLET BY MOUTH EVERY 12 HOURS FOR 10 DAYS 02/14 completed Not Available Not Available Not Available Kenalog 10 mg/mL suspension for injection In office injection administe red by the provider 11/20 completed ND: 0003- [id number]- 20 Not Available Not Available Not Available amlodipine 10 mg tablet TAKE 1 TABLET BY MOUTH EVERY DAY 2023 active Not Available Not Available Not Avai lable hydrocodone 7.5 mg-acetamin ophen 325 mg tablet TAKE 1 TABLET BY MOUTH EVERY 4 HOURS NEEDED 01/18 completed Not Available Not Available Not Available valsartan 320 mg tablet TAKE 1 TABLET BY MOUTH EVERY DAY 2023 active Not Available Not Available Not Avai lable indomethaci n 50 mg capsule Take 1 capsule 3 times a day by oral route as needed. active Not Available Not Available No t Available gabapentin 300 mg capsule TAKE 1 TO 2 CAPSULESS BY MOUTH AT BEDTIME NEEDED active Not Available Not Available No t Available diclofenac sodium 75 mg tablet,luciano yed release Take 1 tablet twice a day by oral route. active Not Available Not Available No t Available allopurinol 300 mg tablet TAKE 1 TABLET BY MOUTH EVERY DAY active Not Available Not Available No t Available ceftriaxone 500 mg solution for injection active ndc#: [id number] 7338- 01 Not Available Not Available Not Available levofloxaci n 750 mg tablet Take 1 tablet every day by oral route as directed for 14 days. active Not Available Not Available No t Available methylpredn isolone 4 mg tablets in a dose pack TAKE 6 TABLETS ON DAY 1 DIRECTED ON PACKAGE AND DECREASE BY 1 TAB EACH DAY FOR A TOTAL OF 6 DAYS 04/06 completed Not Available Not Available Not Available colchicine 0.6 mg tablet TAKE 2 PILLS AT ONSET OF GOUT AND THEN 1 TABLET IN 1 HOUR. 04/20 completed Not Available Not Available Not Available indomethaci n ER 75 mg capsule,ext ended release active Not Available Not Available Not Available ondansetron 4 mg disintegrat ing tablet 04/20 completed Not Available Not Available Not Available cefdinir 300 mg capsule Take 1 capsule twice a day by oral route for 10 days. active Not Available Not Available No t Available fluticasone propionate 50 mcg/actuati on nasal spray,suspe nsion Inhale 2 sprays every day by intranasa l route in the morning for 30 days. active prn Not Available Not Available No t Available metformin ER 500 mg tablet,exte nded release 24 hr TAKE 2 TABLETS EVERY DAY BY ORAL ROUTE DIRECTED FOR 180 DAYS. active Not Available Not Available No t Available amoxicillin 875 mg-potassiu m clavulanate 125 mg tablet TAKE 1 TABLET BY MOUTH EVERY 12 HOURS FOR 10 DAYS active Not Available Not Available No t Available cyclobenzap rine 5 mg tablet Take 1 tablet every day by oral route at bedtime for 30 days. active PRN Not Available Not Available No t Available metformin ER 750 mg tablet,exte nded release 24 hr TAKE 2 TABLETS BY MOUTH EVERY DAY 04/21 completed Not Available Not Available Not Available metoprolol tartrate 25 mg tablet Take 1 tablet twice a day by oral route. active Not Available Not Available No t Available metformin ER 1,000 mg tablet,exte nded release 24hr (osmotic) TAKE 1 TABLETS BY MOUTH bid active Not Available Not Available No t Available metformin ER 1,000 mg tablet,exte nded release 24 hr Take 2 tablets every day by oral route. active Not Available Not Available No t Available Spruceling Ultra2 Meter kit 07/09 completed Not Available Not Available Not Available lidocaine (PF) 10 mg/mL (1 %) injection solution In office injection administe red by the provider 11/20 completed [facility]: [phone]- [phone]- 17 Not Available Not Available Not Available metformin ER 500 mg 24 hr tablet,exte nded release (gastric retention) 2 tabs po bid 02/14 completed Not Available Not Available Not Available amlodipine 10 mg-valsarta n 320 mg tablet TAKE 1 TABLET BY MOUTH EVERY DAY 02/19 completed Not Available Not Available Not Available Bystolic 10 mg tablet Take 1 tablet every day by oral route. 10/16 completed Not Available Not Available Not Available metformin ER 1,000 mg 24 hr tablet,exte nded release (gastric reten.) TAKE 2 TABLETS BY: MOUTH EVERY. DAY 10/16 completed Not Available Not Available Not Available Bystolic 20 mg tablet Take 1 tablet every day by oral route. 02/14 completed Not Available Not Available Not Available OneTouch Delica Lancets 30 gauge 07/09 completed Not Available Not Available Not Available Farxiga 10 mg tablet TAKE 1 TABLET BY MOUTH EVERY DAY active Not Available Not Available No t Available Farxiga 5 mg tablet TAKE 1 TABLET BY MOUTH EVERY DAY 05/17 completed Not Available Not Available Not Available Trulicity 0.75 mg/0.5 mL subcutaneou s pen injector Inject 0.75 mg every week by subcutane ous route for 30 days. 2023 active Not Available Not Available Not Avai lable Bydureon BCise 2 mg/0.85 mL subcutaneou s auto-inject or active Not Available Not Available Not Available Ozempic 0.25 mg or 0.5 mg (2 mg/1.5 mL) subcutaneou s pen injector INJECT 0.25MG SUBCUTANE OUSLY WEEKLY FOR 4 WEEKS, THEN 0.5 WEEKLY THEREAFTE R 10/21 completed Not Available Not Available Not Available OneTouch Ultra Blue Test Strip 07/09 completed Not Available Not Available Not Available Ozempic 1 mg/dose (4 mg/3 mL) subcutaneou s pen injector INJECT 1 MG SUBCUTANE OUSLY EVERY WEEK 04/20 completed Not Available Not Available Not Available Ozempic 2 mg/dose (8 mg/3 mL) subcutaneou s pen injector INJECT 2 MG EVERY WEEK BY SUBCUTANE OUS ROUTE 2023 active Not Available Not Available Not Avai lable Vitals Date Recorded Body height Body mass index (BMI) Body weight Body temperature Heart rate Oxygen saturation Oxygen saturation in Arterial blood by Pulse oximetry Systolic And Diastolic Provider Name and Address Organization Details Last Updated DateTime 4 165.1 cm 31.8 kg/m2 89239.1 4 g 97.5 [degF] 75 /min 98 % 98 % 138/84 mm[Hg] Evangelina Sims MA [facility] [employer] [facility] 4 10:57:27 Date Recorded Body height Body mass index (BMI) Body weight Body temperature Respiratory rate Heart rate Oxygen saturation Oxygen saturation in Arterial blood by Pulse oximetry Systolic And Diastolic Provider Name and Address Organization Details Last Updated DateTime 4 165.1 cm 30.8 kg/m2 38324.5 9 g 98.5 [degF] 16 /min 93 /min 96 % 96 % 130/88 mm[Hg] Milagro Ludwig RN [facility] [employer] [facility] 4 11:16:22 Date Recorded Body height Body mass index (BMI) Body weight Body temperature Heart rate Oxygen saturation Oxygen saturation in Arterial blood by Pulse oximetry Respiratory rate Systolic And Diastolic Provider Name and Address Organization Details Last Updated DateTime 4 165.1 cm 29.3 kg/m2 87196.2 6 g 98.5 [degF] 85 /min 96 % 96 % 16 /min 168/88 mm[Hg] Milagro Ludwig RN [facility] [employer] [facility] 4 12:31:57 Date Recorded Body height Body mass index (BMI) Body weight Body temperature Heart rate Oxygen saturation Oxygen saturation in Arterial blood by Pulse oximetry Respiratory rate Systolic And Diastolic Provider Name and Address Organization Details Last Updated DateTime 4 165.1 cm 29.5 kg/m2 94194.8 5 g 98.1 [degF] 79 /min 97 % 97 % 16 /min 158/82 mm[Hg] Milagro Ludwig RN [facility] [employer] [facility] 4 12:16:22 Date Recorded Body height Body mass index (BMI) Body weight Body temperature Heart rate Oxygen saturation Oxygen saturation in Arterial blood by Pulse oximetry Systolic And Diastolic Provider Name and Address Organization Details Last Updated DateTime 3 165.1 cm 29.5 kg/m2 15766.8 5 g 98.1 [degF] 78 /min 97 % 97 % 130/80 mm[Hg] NOEMÍ Cabrera [place] [employer] [facility] [employer] 3 11:08:05 Social History Question Answer Notes LastModified by [employer] Details LastModified Time Tobacco Smoking Status Current Every Day Smoker smokes cigars 2pd Jade Dmitry wil[place], [place] [employer] [facility] [employer] 01/19/2023 10:09:39 What Is Your Level Of Caffeine Consumption? Heavy [id number] Information not available 11/30/2022 How Much Tobacco Do You Chew? None [id number] Information not available 11/30/2022 In The 14 Days Before Symptom Onset, Have You Had Close Contact With A Laboratory-confir med COVID-19 While That Case Was Ill? No [email or web address] Information not available 01/19/2023 In The 14 Days Before Symptom Onset, Have You Had Close Contact With A Person Who Is Under Investigation For COVID-19 While That Person Was Ill? No [email or web address] Information not available 01/19/2023 What Type Of Diet Are You Following? REGULAR [id number] Information not available 11/30/2022 Which Illicit Or Recreational Drugs Have You Used? None [email or web address] Information not available 01/19/2023 How Many Years Have You Smoked Tobacco? 15 [email or web address] Information not available 01/19/2023 Sex: Unknown Functional Status Question Answer Note LastModified by [employer] Details LastModified Time What is your level of alcohol consumption? None [id number] Information not available 11/30/2022 Do you or have you ever used smokeless tobacco? Never used smokeless tobacco [id number] Information not available 11/30/2022 What is your occupation? Retired [email or web address] Information not available 01/19/2023 Do you or have you ever used e-cigarettes or vape? Never used electronic cigarettes [email or web address] Information not available 01/19/2023 Mental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
--- OUTSIDE RECORDS SUMMARY | 2025-04-04 11:58 | XMS_ITS | Clinical Summary ---
Author Organization [facility] Address [address] [place] [address] Care Team Providers Care Skein Washer Name Role Phone Montserrat Akins PA-C Primary Care Provider [phone] Allergies Active Allergy Reactions Criticality Noted Date Comments Shellfish-Derived Products Swelling 4 Medications Blood Glucose Monitoring Suppl (ACCU-CHEK GUIDE) w/Device KitIndications:T ype 2 diabetes mellitus with hyperglycemia, without long-term current use of insulin (CMS/FORMERLY [facility] HHS/HCC) Use as instructed, check sugar once daily,E11.9 1 kit 09/19/20 24 Active Blood Glucose Monitoring Suppl (ACCU-CHEK GUIDE) w/Device KitIndications:T ype 2 diabetes mellitus with hyperglycemia, without long-term current use of insulin (CMS/[facility] HHS/HCC) Use as instructed, check sugar once daily,E11.6 5 1 kit 11/06/19 25 Active amLODIPine (NORVASC) 10 MG tabletIndication s:Primary hypertension Take 1 tablet (10 mg total) by mouth daily. 90 tablet 1 12/05/19 25 Active FARXIGA 10 MG tabletIndication s:Type 2 diabetes mellitus with hyperglycemia, without long-term current use of insulin (CMS/HCC HHS/HCC) Take 1 tablet (10 mg total) by mouth daily. 90 tablet 1 12/05/19 25 Active Glucose Blood (ACCU-CHEK GUIDE TEST) test stripIndications :Type 2 diabetes mellitus with hyperglycemia, without long-term current use of insulin (CMS/HCC HHS/HCC) Use as instructed, check sugar once daily,E11.6 5 100 strip 3 12/05/19 25 Active Lancets MiscIndications: Type 2 diabetes mellitus with hyperglycemia, without long-term current use of insulin ([facility]) Use as instructed, check sugar once daily,E11.6 5 100 each 3 12/05/19 25 Active metFORMIN (GLUCOPHAGE) 1000 MG tabletIndication s:Type 2 diabetes mellitus with hyperglycemia, without long-term current use of insulin ([facility]) Take 1 tablet (1,000 mg total) by mouth 2 (two) times daily with meals. 180 tablet 1 12/05/19 25 Active valsartan (DIOVAN) 320 MG tabletIndication s:Primary hypertension Take 1 tablet (320 mg total) by mouth daily. 90 tablet 1 12/05/19 25 Active hydroCHLOROthiaz conchita (HYDRODIURIL) 25 MG tabletIndication s:Primary hypertension Take 1 tablet (25 mg total) by mouth every morning. 90 tablet 1 12/05/19 25 Active cephALEXin (KEFLEX) 500 MG capsule Take 1 capsule (500 mg total) by mouth 2 (two) times daily. 14 capsule 02/28/20 25 Active OZEMPIC, 0.25 OR 0.5 MG/DOSE, 2 MG/3ML injection (PEN)Indications :Type 2 diabetes mellitus with hyperglycemia, without long-term current use of insulin ([facility]) INJECT 0.5 MG UNDER THE SKIN EVERY 7 DAYS 3 mL 03/17/20 25 Active OZEMPIC, 0.25 OR 0.5 MG/DOSE, 2 MG/3ML injection (PEN)Indications :Type 2 diabetes mellitus with hyperglycemia, without long-term current use of insulin ([facility]) INJECT 0.5 MG UNDER THE SKIN EVERY 7 DAYS 3 mL 01/29/20 25 025 Discontinued HYDROcodone-acet aminophen (NORCO) 5-325 MG tabletIndication s:Acute Pain < 7 Day Supply Take 1 tablet by mouth every 6 (six) hours as needed for Pain. 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 Hyperlipidemia 04/20/2023 Lesion of tongue 04/20/2023 Chronic maxillary sinusitis 02/15/2022 Pain of left sacroiliac joint 12/09/2020 Retinal disorder 12/05/2018 Onychomycosis 02/22/2018 Steatosis of liver 02/22/2018 Gout 11/21/2017 Encounters Date Type Department Care Team Description 03/30/2025 Telephone [facility] - [place] [phone] Montserrat Akins PA-C Advice 03/27/2025 1:00 PM CDT Office Visit [facility] General Surgery [address], [address] [address] Anshul Murry MD Postop Followup (Bilateral Inguinal Hernia Repair 02/27/25) 03/27/2025 Travel 03/06/2025 1:45 PM CDT Office Visit [facility] General Surgery [address], [address] [address] Anshul Murry MD Postop Followup (02/27/25 Bilateral Inguinal Hernia Repair) 03/06/2025 Travel 03/03/2025 Telephone [facility] [address], [address] [address] Anshul Murry MD Question 02/27/2025 10:29 AM CDT Anesthesia Event [facility] [address] [place], [place] [id number] Ximena Redmond CRNA Rani, Swaroop, MD 02/27/2025 10:00 AM CDT - 02/27/2025 11:43 AM CDT Surgery [facility] [address] [place], [place] [id number] Anshul Murry MD HERNIORRHAPHY INGUINAL- bilateral open repair with mesh 02/27/2025 8:38 AM CDT - 02/27/2025 2:12 PM CDT Hospital Encounter [facility] [address] [place] [address] Anshul Murry MD Discharge Disposition: Home or Self Care (Routine Discharge) 02/27/2025 Travel 02/19/2025 11:57 AM CDT - 02/19/2025 11:59 PM CDT Hospital Encounter [facility] [address] [place] [address] Anshul Murry MD Discharge Disposition: Home or Self Care (Routine Discharge) 02/19/2025 Travel 02/12/2025 Prep for Procedure [address], [address] [address] Anshul Murry MD 02/11/[address], [address] [address] Anshul Murry MD Question 02/10/[address], [address] [address] Anshul Murry MD Schedule Surgery 02/06/2025 10:20 AM CDT Office Visit [address] [phone] Montserrat Akins PA-C Diabetes (A1C) 02/06/[address] [address] Montserrat Akins PA-C Letter 02/06/2025 Travel from Last 3 Months Immunizations Immunization Administration Dates Next Due Arexvy Respiratory Syncytial Virus (RSV, adjuvanted) 0.5 mL, PF 09/28/2023 COVID-19 Vaccine (Generic) 12/04/2020 Dtap (Generic) 10/02/2003 Fluzone High Dose (IIV, trivalent, 0.5mL) 2023 Influenza Adult (Generic) 09/08/2023,08/10/2022, 07/02/2016 Pneumococcal (Prevnar 20) 08/01/2024 Tdap (Generic) 08/31/2016 Family History Medical History Relation Comments No Known Problems Daughter Relation Status Comments Daughter Alive Father Mother Social History Tobacco Use Types Packs/Day Years Used Date Smoking Tobacco: Every Day Cigars Passive Smoke Exposure: Current Smokeless Tobacco: Never Tobacco Cessation:Ready to Q uit: No; Counseling Given: Yes Comments:Physician will discuss smoking cessation Patient smokes one cigar a day. Alcohol Use Standard Drinks/Week Comments Yes 1.7 (1 standard drink = 0.6 oz p ure alcohol) occ PHQ-2 Answer Date Recorded Patient Health Questionnaire-2 Score 0 03/27/2025 Sex and Gender Information Value Date Recorded Sex Assigned at Male 11/08/2024 9:32 AM MEASUREMENT DEPARTMENT CHIEF CLERK Legal Sex Male 10:07 AM CDT Gender Identity Not on file Sexual Orientation Not on file Last Filed Vital Signs Vital Sign Reading Time Taken Comments Blood Pressure 133/78 03/27/2025 1:08 PM CDT Pulse 81 03/27/2025 1:08 PM CDT Temperature 36.2 C (97.2 F) 03/06/2025 2:06 PM CDT Respiratory Rate 20 03/27/2025 1:08 PM CDT Oxygen Saturation 97% 03/27/2025 1:08 PM CDT Inhaled Oxygen Concentration - - Weight 83.6 kg (184 lb 6.4 oz) 03/27/2025 1:08 P M CDT Height 167.6 cm (5' 6) 02/27/2025 9:00 AM CDT Body Mass Index 29.76 02/27/2025 9:00 AM CDT Plan of Treatment Upcoming Encounters Date Type Department Care Team (Late st Contact Info) Description 04/10/2025 1:00 PM CDT Office Visit [facility] General Surgery [address], [address] [place] [address] [place] [address] [facility] [address] [place] [phone] 05/02/2025 9:20 AM CDT Office Visit [facility] - [facility] [address] [place] [address] Montserrat Akins PA-C [address] [place] [address] Danielle Dunlap, CINDY [address] [facility] [address] [place] [address] 05/12/2025 10:40 AM CDT Office Visit [facility] - [place] [address] [place] [address] Montserrat Akins PA-C [address] [place] [address] Health Maintenance Due Date Last Done Comments Colorectal Cancer Screening Colonoscopy (10 Years) 1958 Diabetes: Retinopathy Eye Exam 1976 AAA SCREENING 2023 Annual Medicare Wellness Visit 2023 COVID-19 Vaccine ( season) 2024 06/15/2024, 09/08/2023, 07/18/2022, Additional history exists Zoster Vaccines (1 of 2) 08/01/2025 Pos tponed from 2008 (Going to Outside Clinic) Kidney Health Evaluation 08/06/2025 08/06/2024 Lipid Panel 08/06/2025 08/06/2024 Hemoglobin A1C 08/09/2025 02/06/2025, 02/0 01/2025, 08/06/2024 DTaP, Tdap and Td Vaccines (3 - Td or Tdap) 08/31/2026 08/31/2016, 10/02/2003 RSV Immunization or 60+ Years Completed 09/28/2023 Pneumococcal Vaccine: 50+ Years Completed 08/01/2024 Hepatitis C Completed 08/06/2024 PHQ-2 (Physician [place]) Completed 03/27/2025 Meningococcal B Vaccine Aged Out No l onger eligible based on patient's age to complete this topic Meningococcal Vaccine Aged Out No chase bhavesh eligible based on patient's age to complete this topic RSV Immunizations Under 20 Months Aged Out No longer eligible based on patient's age to complete this topic Medical Devices Implanted Type Area Director Industrial Nursing Device Identifier Shelf Expiration Date Model / Serial / Lot Perfix Light Plug Mesh For Tension Free Hernia Repair Implanted:Qty: 1 on 02/27/2025 by Anshul Murry MD at [facility] Right: [employer] 03/29/2027 [id number] / / [id number] Perfix Light Plug Mesh For Tension Free Groin Hernia Repair Implanted:Qty: 1 on 02/27/2025 by Anshul Murry MD at [facility] Left: Groin [employer] 06/29/2029 [id number] / / [id number] Explanted Type Area Director Industrial Nursing Device Identifier Shelf Expiration Date Model / Serial / Lot Perfix Light Plug Mesh For Tension Free Groin Hernia Repair Explanted:Qty: 1 on 02/27/2025 at [facility] Right: Groin [employer] 10/29/2025 [id number] / / [id number] Procedures Procedure Name Priority Date/Time Associated Diagnosis Comments POCT GLUCOSE - DOCKED DEVICE Routine 02/27/2025 2:16 PM CDT POCT GLUCOSE - DOCKED DEVICE Routine 02/27/2025 12:36 PM CDT POCT GLUCOSE - DOCKED DEVICE Routine 02/27/2025 11:03 AM CDT REPAIR ING HERNIA,5+Y/O,REDUCIB L 02/27/2025 10:29 AM CDT History of bilateral inguinal hernias Case Notes C POCT GLUCOSE - DOCKED DEVICE Routine 02/27/2025 9:38 AM CDT MRSA SCREENING Routine 02/19/2025 12:09 PM CDT Preop testing COLLECT.CAPILLARY (FNGR,HEEL,EAR) Routine 02/06/2025 10:15 AM CDT Type 2 diabetes mellitus with hyperglycemia, without long-term current use of insulin ([facility] HHS/HCC) HEMOGLOBIN, GLYCOSYLATED Routine 02/06/2025 Type 2 diabetes mellitus with hyperglycemia, without long-term current use of insulin ([facility]CC HHS/HCC) HEPATITIS C ANTIBODY W/RFX TO HCV RNA Routine 08/06/2024 12:20 PM MEASUREMENT DEPARTMENT CHIEF CLERK Need for hepatitis C screening test LIPID PANEL Routine 08/06/2024 12:20 PM MEASUREMENT DEPARTMENT CHIEF CLERK Screening, lipid from Last 3 Months or Most Recently Relevant to Health Maintenance Results * (ABNORMAL) POCT glucose (02/27/2025 2:16 PM CDT) Only the most recent of4 resultswithin the time period is included. GLUCOSE POC 273(H) 70 - 110 mg/dL 02/27/2025 2:18 PM CDT [facility] 02/27/2025 2:16 PM CDT Anshul Murry MD POCT ORDERABLES - DEVICE Final R esult [facility] [address] [place] [address], [place] [phone] * MRSA SCREENING (02/19/2025 12:09 PM CDT) SPEC DESCRIPTION NASAL 02/19/2025 12:08 PM CDT [facility] SPECIAL REQUESTS NO SPECIAL REQUEST 02/19/2025 12:08 PM CDT [facility] CULTURE RESULT NO METHICILLIN RESISTANT STAPHYLOCOCCUS AUREUS ISOLATED 02/20/2025 11:26 AM CDT [facility] SPECIMEN FROM INTERNAL NOSE / Unknown 02/19/2025 12:09 PM CDT 02/19/2025 12:10 PM CDT Anshul Murry MD MICROBIOLOGY - GENERAL ORDERABLE S Final Result [facility] [address] [facility] [place] [address], [place] [phone] [facility] [address] [place] [address], [place] [phone] * A1C (BACK OFFICE) (02/06/2025) HGB A1C 8.3 % [facility] [facility] 02/06/2025 Montserrat Akins PA-C LABORATORY Final Resu lt Performing Organization Address [facility]/ZIP Co de Phone Number [facility],[place] [address] [place] [address], [place] [phone] * HEPATITIS C ANTIBODY W/RFX TO HCV RNA (08/06/2024 12:20 PM MEASUREMENT DEPARTMENT CHIEF CLERK) HEPATITIS C AB Non Reactive Non Reacti [facility] 1 INTERPRETATION Comment [facility] 1 Comment: Not infected with HCV unless early or acute infection is suspected (which may be delayed in an immunocompromised individual), or other evidence exists to indicate HCV infection. 08/06/2024 12:2 0 PM MEASUREMENT DEPARTMENT CHIEF CLERK 08/06/2024 Narrative [facility] - 08/07/2024 2:12 PM MEASUREMENT DEPARTMENT CHIEF CLERK Performed at: 01 - [facility] [id number] Supervisor Data Processing: Elan Alexander PhD, Phone: [phone] Montserrat Akins PA-C LABORATORY Final Resu lt [facility] [address] [place] [address] [facility] * (ABNORMAL) LIPID PANEL (08/06/2024 12:20 PM MEASUREMENT DEPARTMENT CHIEF CLERK) CHOLESTEROL 83(L) 100 - 199 mg/dL [facility] 1 TRIGLYCERIDES 89 0 - 149 mg/dL [facility] 1 HDL 37(L) >39 mg/dL [facility] 1 VLDL CALCULATION 18 5 - 40 mg/dL [facility] 1 LDL (CALCULATED) 28 0 - 99 mg/dL [facility] 1 08/06/2024 12:2 0 PM MEASUREMENT DEPARTMENT CHIEF CLERK 08/06/2024 Narrative [facility] - 08/07/2024 2:12 PM MEASUREMENT DEPARTMENT CHIEF CLERK Performed at: 01 - [facility] [address] [id number] Supervisor Data Processing: Elan Alexander PhD, Phone: [phone] Montserrat Akins PA-C LABORATORY Final Resu lt [facility] [address] [place] [address] [facility] 1 from Last 3 Months or Most Recently Relevant to Health Maintenance Insurance MEDICARE [facility] Care Teams Skein Washer Relationship Specialty Start Date End Date Montserrat Akins PA-C [address] [place] [id number] PCP - General PHYSICIAN COLORER MACHINE 08/01/24
--- NOTE | 2025-04-04 12:18 | ED.WOUNDLAC ---
HPI - Wound/Laceration General Chief Complaint: Wound/Laceration Stated Complaint: LAC TO TIP OF R THUMB Time Seen by Provider: 04/04/25 12:16 Source: patient Mode of arrival: ambulatory Limitations: no limitations History of Present Illness HPI narrative: Right thumb injury, using mandoline in kitchen. Related Data Home Medications ?Medication ?Instructions ?Recorded ?Confirmed ?Last Taken ?Type allopurinol 100 mg tablet 100 tablet PO BID 04/05/22 04/04/25 04/03/25 History amlodipine 10 mg-valsartan 320 mg 1 tablet PO DAILY 04/05/22 04/04/25 04/03/25 History tablet dapagliflozin propanediol 10 mg 1 tablet PO DAILY 04/05/22 04/04/25 04/03/25 History tablet (Farxiga) metformin 500 mg tablet,extended 2 tablet PO BID 04/05/22 04/04/25 04/03/25 History release 24 hr Allergies Allergy/AdvReac Type Severity Reaction Status Date / Time iodine Allergy Swelling Verified 04/04/22 21:19 of the Eye 1 SEAFOOD Allergy Unknown Swelling Uncoded 04/04/22 21:19 of the Eye Review of Systems Review of Systems: All systems reviewed & are unremarkable except as noted in HPI and below PMFSH Social History Social History Smoking status: Current every day smoker Tobacco type: cigars Second hand tobacco smoke exposure: Yes Additional smoking assessment comments: 2 cigars daily Alcohol intake: never Substance use: never Living arrangements: alone Gender identity (if verbalized by the patient): Male Spiritual care concerns: No Exam Narrative: General appearance: Well-developed, well-nourished Skin: Normal color right thumb exam showing 1 cm by 0.5 cm skin avulsion at the tip of the thump, oozing blood Vascular: Normal peripheral pulses, normal capillary refill. Musculoskeletal: Normal range of motion, nontender back Neurologic: Alert and oriented ?3, RIG MECHANIC is normal as tested, no gross motor deficit Course Vital Signs Vital signs: Vital Signs Temperature 36.3 C L 04/04/25 11:55 Pulse Rate 83 04/04/25 11:55 Respiratory Rate 16 04/04/25 11:55 Blood Pressure 164/77 H 04/04/25 11:55 Pulse Oximetry 99 04/04/25 11:55 Oxygen Delivery Room Air 04/04/25 11:55 Temperature 36.3 C L 04/04/25 11:55 Pulse Rate 83 04/04/25 11:55 Respiratory Rate 16 04/04/25 11:55 Blood Pressure 164/77 H 04/04/25 11:55 Pulse Oximetry 99 04/04/25 11:55 Oxygen Delivery Room Air 04/04/25 11:55 MDM - Wound/Laceration MDM Narrative Medical decision making narrative: Right thumb skin avulsion Dermabond Patient tolerated the procedure well. Discharged on Keflex Differential Diagnosis Differential diagnosis: Likely avulsion of skin and other Imaging Data Radiologist's impression: Impressions Finger X-Ray 04/04/25 13:29 IMPRESSION: Findings which may be secondary to degenerative disease versus an acute avulsion fracture along the proximal radial margin of the proximal phalanx of the first digit. Critical Care Time Critical Care Time Critical Care Time: No Discharge Plan Discharge Clinical Impression: Avulsion of skin of finger Patient Disposition: Home Condition: Stable Instructions: Skin Avulsion (ED), Skin Adhesive Care (ED) Additional Instructions: Return if symptoms are worsening , call your family physician for appointment, take Tylenol, ibuprofen as as needed for aches and pain, continue home medications. Patient Language: Sinhala Prescriptions: New cephalexin 500 mg capsule 500 mg PO Q6H Qty: 28 0RF No Action allopurinol 100 mg tablet 100 tablet PO BID metformin 500 mg tablet extended release 24 hr 2 tablet PO BID amlodipine-valsartan 10-320 mg tablet 1 tablet PO DAILY dapagliflozin propanediol [Farxiga] 10 mg tablet 1 tablet PO DAILY Follow-up/Referrals: UNKNOWN,DOCTOR [Primary Care Provider] -
--- OUTSIDE RECORDS SUMMARY | 2025-04-04 12:28 | XMS_ITS | Clinical Summary ---
Author Organization [facility] Address [address] [place] [address] Care Team Providers Care Chief Revenue Officer Name Role Phone Montserrat Akins PA-C Primary Care Provider [phone] Allergies Active Allergy Reactions Criticality Noted Date Comments Shellfish-Derived Products Swelling 4 Medications Blood Glucose Monitoring Suppl (ACCU-CHEK GUIDE) w/Device KitIndications:T ype 2 diabetes mellitus with hyperglycemia, without long-term current use of insulin (CMS/[facility] HHS/HCC) Use as instructed, check sugar once daily,E11.9 1 kit 09/19/20 24 Active Blood Glucose Monitoring Suppl (ACCU-CHEK GUIDE) w/Device KitIndications:T ype 2 diabetes mellitus with hyperglycemia, without long-term current use of insulin (CMS/[facility] HHS/HCC) Use as instructed, check [...] hyperglycemia, without long-term current use of insulin ([facility]) Use as instructed, check sugar once daily,E11.6 5 100 each 3 12/05/19 25 Active metFORMIN (GLUCOPHAGE) 1000 MG tabletIndication s:Type 2 diabetes mellitus with hyperglycemia, without long-term current use of insulin ([facility]) Take 1 tablet (1,000 mg [...] hyperglycemia, without long-term current use of insulin ([facility]) INJECT 0.5 MG UNDER THE SKIN EVERY 7 DAYS 3 mL 03/17/20 25 Active OZEMPIC, 0.25 OR 0.5 MG/DOSE, 2 MG/3ML injection (PEN)Indications :Type 2 diabetes mellitus with hyperglycemia, without long-term current use of insulin ([facility]) INJECT 0.5 MG UNDER THE [...] not specified as recurrent 11/08/2024 Diabetes mellitus ([facility]) 11/07/2024 Hemorrhoids 11/07/2024 Lumbar sprain 11/07/2024 Primary hypertension 08/01/2024 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 Family Medicine - [address] [phone] Montserrat Akins PA-C Advice 03/27/2025 1:00 PM CDT Office Visit [facility] General Surgery [address], [address] [address] Anshul Murry MD Postop Followup (Bilateral Inguinal Hernia Repair 02/27/25) 03/27/2025 Travel 03/06/2025 1:45 PM CDT Office Visit [facility] General Surgery [address], [address] [address] Anshul Murry MD Postop Followup (02/27/25 Bilateral Inguinal Hernia Repair) 03/06/2025 Travel 03/03/2025 Telephone [facility] General [address], [address] [address] Anshul Murry MD Question 02/27/2025 10:29 AM CDT Anesthesia Event [facility] [address] [place], [place] [id number] Ximena Redmond CRNA Rani, Swaroop, MD 02/27/2025 10:00 AM CDT - 02/27/2025 11:43 AM CDT Surgery [facility] [address] [place], [place] [id number] Anshul Murry MD HERNIORRHAPHY INGUINAL- bilateral open repair with mesh 02/27/2025 8:38 AM CDT - 02/27/2025 2:12 PM CDT Hospital Encounter [facility] Surgery [address] [place] [address] Anshul Murry MD Discharge Disposition: Home or Self Care (Routine Discharge) 02/27/2025 Travel 02/19/2025 11:57 AM CDT - 02/19/2025 11:59 PM CDT Hospital Encounter [facility] [address] [place] [address] Anshul Murry MD Discharge Disposition: Home or Self Care (Routine Discharge) 02/19/2025 Travel 02/12/2025 Prep for Procedure [address], [address] [address] Anshul Murry MD 02/11/[address], [address] [address] Anshul Murry MD Question 02/10/[address], [address] [address] Anshul Murry MD Schedule Surgery 02/06/2025 10:20 AM CDT Office Visit [address] [address] Montserrat Akins PA-C Diabetes (A1C) 02/06/[address] [address] Montserrat Akins PA-C Letter 02/06/2025 Travel from [...] Sex Assigned at Male 11/08/2024 9:32 AM [employer] Legal Sex Male 10:07 AM CDT Gender [...] Description 04/10/2025 1:00 PM CDT Office Visit [facility] General Surgery [address], [address] [place] [address] [place] [address] [facility] [address] [place] [phone] 05/02/2025 9:20 AM CDT Office Visit [facility] Multispecialty Care - [facility] [address] [facility] [place] [address] Montserrat Akins PA-C [address] [place] [address] Danielle Dunlap, CINDY [address] [facility] [address] [place] [address] 05/12/2025 10:40 AM CDT Office Visit [facility] Family Medicine - [address] [place] [address] Montserrta Akins PA-C [address] [place] [address] Health Maintenance Due Date Last Done Comments [...] 08/01/2024 Hepatitis C Completed 08/06/2024 PHQ-2 (Physician [place]) Completed 03/27/2025 Meningococcal B Vaccine Aged Out No l onger eligible based on patient's age to complete this topic Meningococcal Vaccine Aged Out No chase bhavesh eligible based on patient's age to complete this topic RSV Immunizations Under 20 Months Aged Out No longer eligible based on patient's age to complete this topic Medical Devices Implanted Type Area Lead Java Programmer Device Identifier Shelf Expiration Date Model / Serial / Lot Perfix Light Plug Mesh For Tension Free Hernia Repair Implanted:Qty: 1 on 02/27/2025 by Anshul Murry MD at [facility] Right: Groin [employer] 03/29/2027 [id number] / / [id number] Perfix Light Plug Mesh For Tension Free Groin Hernia Repair Implanted:Qty: 1 on 02/27/2025 by Anshul Murry MD at [facility] Left: Groin [employer] 06/29/2029 [id number] / / [id number] Explanted Type Area Lead Java Programmer Device Identifier Shelf Expiration Date Model / Serial / Lot Perfix Light Plug Mesh For Tension Free Groin Hernia Repair Explanted:Qty: 1 on 02/27/2025 at [facility] Right: Groin [employer] 10/29/2025 [id number] / / [id number] Procedures Procedure Name Priority Date/Time Associated Diagnosis [...] hyperglycemia, without long-term current use of insulin ([facility] HHS/HCC) HEMOGLOBIN, GLYCOSYLATED Routine 02/06/2025 Type 2 diabetes mellitus with hyperglycemia, without long-term current use of insulin ([facility]/HCC HHS/HCC) HEPATITIS C ANTIBODY W/RFX TO HCV RNA Routine 08/06/2024 12:20 PM [employer] Need for hepatitis C screening test LIPID PANEL Routine 08/06/2024 12:20 PM [employer] Screening, lipid from Last 3 Months or Most Recently Relevant to Health Maintenance Results * (ABNORMAL) POCT glucose (02/27/2025 2:16 PM CDT) Only the most recent of4 resultswithin the time period is included. GLUCOSE POC 273(H) 70 - 110 mg/dL 02/27/2025 2:18 PM CDT [facility] 02/27/2025 2:16 PM CDT Anshul Murry MD POCT ORDERABLES - DEVICE Final R esult [facility] [address] [place] [address], [place] [phone] * MRSA SCREENING (02/19/2025 12:09 PM CDT) SPEC DESCRIPTION NASAL 02/19/2025 12:08 PM CDT [facility] SPECIAL REQUESTS NO SPECIAL REQUEST 02/19/2025 12:08 PM CDT [facility] CULTURE RESULT NO METHICILLIN RESISTANT STAPHYLOCOCCUS AUREUS ISOLATED 02/20/2025 11:26 AM CDT [facility] SPECIMEN FROM INTERNAL NOSE / Unknown 02/19/2025 12:09 PM CDT 02/19/2025 12:10 PM CDT Anshul Murry MD MICROBIOLOGY - GENERAL ORDERABLE S Final Result [facility] [address] [facility] [place] [address], [place] [phone] [facility] [address] [place] [address], [place] [phone] * A1C (BACK OFFICE) (02/06/2025) HGB A1C 8.3 % [facility] [facility] 02/06/2025 Montserrat Akins PA-C LABORATORY Final Resu lt Performing Organization Address [facility]/ZIP Co de Phone Number [address],[place] [address] [facility] [address], [place] [phone] * HEPATITIS C ANTIBODY W/RFX TO HCV RNA (08/06/2024 12:20 PM [employer]) HEPATITIS C AB Non Reactive Non Reacti [facility] 1 INTERPRETATION Comment [facility] Comment: Not infected with HCV unless early or acute infection is suspected (which may be delayed in an immunocompromised individual), or other evidence exists to indicate HCV infection. 08/06/2024 12:2 0 PM [employer] 08/06/2024 Narrative [facility] - 08/07/2024 2:12 PM [employer] Performed at: 01 - [facility] [id number] Java Grails Developer: Elan Alexander PhD, Phone: [phone] Montserrat Akins PA-C LABORATORY Final Resu lt [facility] [address] [place] [address] [facility] 1 * (ABNORMAL) LIPID PANEL (08/06/2024 12:20 PM [employer]) CHOLESTEROL 83(L) 100 - 199 mg/dL [facility] 1 TRIGLYCERIDES 89 0 - 149 mg/dL [facility] 1 HDL 37(L) >39 mg/dL [facility] 1 VLDL CALCULATION 18 5 - 40 mg/dL [facility] 1 LDL (CALCULATED) 28 0 - 99 mg/dL [facility] 1 08/06/2024 12:2 0 PM [employer] 08/06/2024 Narrative [facility] - 08/07/2024 2:12 PM [employer] Performed at: 01 - [facility] [address] [id number] Java Gra[employer] Developer: Elan Alexander PhD, Phone: [phone] Montserrat Akins PA-C LABORATORY Final Resu lt [facility] [address] [place] [address] [facility] 1 from Last 3 Months or Most Recently Relevant to Health Maintenance Insurance MEDICARE [facility] Care Teams Chief Revenue Officer Relationship Specialty Start Date End Date Montserrat Akins PA-C [address] [place] [id number] PCP - General PHYSICIAN FIREWALL ENGINEER 08/01/24
[2025-04-04] MEDS: TETANUS,DIPHTHERIA,AC PERTUSSIS ADULT (0.5 ML) BOOSTRIX IM (14:05)
[2025-04-04 14:40] VITALS: BP 134/75; PULSE 61; RESP 18; TEMP 36.2; O2SAT 98
== END 2025-04-04 14:40 | disposition home or self-care (01) ==
PROVIDERS: Emergency Provider Emergency Medicine
DX: S61.011A Laceration without foreign body of right thumb without damage to nail, initial encounter (principal); W27.4XXA Contact with kitchen utensil, initial encounter; F17.290 Nicotine dependence, other tobacco product, uncomplicated; Z23 Encounter for immunization
CPT/HCPCS: 73140; 90471; 90715; 99283

== ENCOUNTER 2025-09-06 10:51 | Emergency (ER) | payer MEDICARE, SELFPAY ==
--- NOTE | ~2025-09-06 | XR_ITS ---
Examination: XR chest 2V Clinical History: Cough Comparison: 04/05/2022 Technique: PA and Lateral Findings: Cardiomediastinal silhouette normal size and configuration. Retrocardiac airspace disease. No acute bony abnormality. IMPRESSION: 1. Small left lower lobe airspace disease. 2. Recommend one-month follow-up x-rays. Reviewed, dictated and finalized at location [facility] [employer]
--- OUTSIDE RECORDS SUMMARY | 2025-09-06 10:53 | XMS_ITS | Clinical Summary ---
Author Organization [facility] Address [address] [place] [address] Care Team Providers Care Shift Superintendent Name Role Phone Montserrat Akins PA-C Primary Care Provider [phone] Allergies Active Allergy Reactions Criticality Noted Date Comments Shellfish Protein-Containing Drug Products Swelling 09/19/2024 Medications Blood Glucose Monitoring Suppl (ACCU-CHEK GUIDE) w/Device KitIndications:Ty pe 2 diabetes mellitus with hyperglycemia, without long-term current use of insulin ([facility]) Use as instructed, check sugar once daily,E11.9 1 kit 4 Active Glucose Blood (ACCU-CHEK GUIDE TEST) test stripIndications: Type 2 diabetes mellitus with hyperglycemia, without long-term current use of insulin ([facility]) Use as instructed, check sugar once daily,E11.65 100 strip 3 5 Active Lancets MiscIndications:T ype 2 diabetes mellitus with hyperglycemia, without long-term current use of insulin ([facility]/HCC) Use as instructed, check sugar once daily,E11.65 100 each 3 5 Active metFORMIN (GLUCOPHAGE) 1000 MG tabletIndications :Type 2 diabetes mellitus with hyperglycemia, without long-term current use of insulin ([facility]HCC) Take 1 tablet (1,000 mg total) by mouth 2 (two) times daily with meals. 180 tablet 1 5 Active pantoprazole EC (PROTONIX) 20 MG tabletIndications :Gastroesophageal reflux disease without esophagitis Take 1 tablet (20 mg total) by mouth daily. 90 tablet Active semaglutide (OZEMPIC) 1 mg/dose injection (PEN)Indications: Diabetes Mellitus Inject 1 mg into the skin once a week. Indications: Diabetes 9 mL 1 5 Active FARXIGA 10 MG tabletIndications :Type 2 diabetes mellitus with hyperglycemia, without long-term current use of insulin (CMS/HCC HHS/HCC) TAKE 1 TABLET(10 MG) BY MOUTH DAILY 90 tablet 1 5 Active hydroCHLOROthiazi de (HYDRODIURIL) 25 MG tabletIndications :Primary hypertension TAKE 1 TABLET(25 MG) BY MOUTH EVERY MORNING 90 tablet 1 5 Active valsartan (DIOVAN) 320 MG tabletIndications :Primary hypertension TAKE 1 TABLET(320 MG) BY MOUTH DAILY 90 tablet 1 5 Active amLODIPine (NORVASC) 10 MG tabletIndications :Primary hypertension TAKE 1 TABLET(10 MG) BY MOUTH DAILY 90 tablet 1 5 Active Active Problems Problem Noted Date Diagnosed Date Atherosclerosis of arteries 08/18/2025 Class 1 obesity due to exces s calories with serious comorbidity and body mass index (BMI) of 30.0 to 30.9 in adult 08/18/2025 Gastroesophageal reflux disease without esophagi tis 05/12/2025 Throat irritation 05/12/2025 Tobacco abuse 05/12/2025 History of bilateral inguinal hernias 02/12/2025 Unilateral inguinal hernia, without obstruction or gangrene, not specified as recurrent 11/08/2024 Diabetes mellitus 11/07/2024 Hemorrhoids 11/07/2024 Lumbar sprain 11/07/2024 Primary hypertension 08/01/2024 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 Hyperlipidemia 04/20/2023 Lesion of tongue 04/20/2023 Chronic maxillary sinusitis 02/15/2022 Pain of left sacroiliac joint 12/09/2020 Retinal disorder 12/05/2018 Onychomycosis 02/22/2018 Steatosis of liver 02/22/2018 Gout 11/21/2017 Encounters Date Type Department Care Team Description 08/18/2025 10:40 AM [employer] [facility] - [place] [phone] Montserrat Akins, PAYassineC Hypertension Follow Up (Patient present for HTN f/u) 08/18/2025 Telephone [facility] [address] [place] [address] Cardiology, Physician Referral Request 08/18/2025 Travel from Last 3 Months Immunizations Immunization Administration Dates Next Due Arexvy Respiratory Syncytial Virus (RSV, adjuvanted) 0.5 mL, PF 09/28/2023 COVID-19 Vaccine (Generic) 12/04/2020 Dtap (Generic) 10/02/2003 Fluzone High Dose (IIV, trivalent, 0.5mL) 2023 Influenza Adult (Generic) 09/08/2023,08/10/2022, 07/02/2016 Pneumococcal (Prevnar 20) 08/01/2024 Tdap (Generic) 08/31/2016 Family History Medical History Relation Comments No Known Problems Daughter Heart Disease Sister Relation Status Comments Daughter Alive Father Mother Sister Alive Social History Tobacco Use Types Packs/Day Years Used Date Smoking Tobacco: Every Day Cigars Passive Smoke Exposure: Current Smokeless Tobacco: Never Tobacco Cessation:Ready to Q uit: Yes; Counseling Given: Yes Comments:Physician will discuss smoking cessation Patient smokes one cigar a day. Alcohol Use Standard Drinks/Week Comments Yes 1.7 (1 standard drink = 0.6 oz p ure alcohol) occ PHQ-2 Answer Date Recorded Patient Health Questionnaire-2 Score 0 03/27/2025 AUDIT-C Answer Date Recorded Frequency of Alcohol Consumption Not on file 08/18/2025 Q2: How many drinks containi ng alcohol do you have on a typical day when you are drinking? Patient does not drink Frequency of Binge Drinking Not on file 08/02 Sex and Gender Information Value Date Recorded Sex Assigned at Male 11/08/2024 9:32 AM [employer] Legal Sex Male 10:07 AM CDT Gender Identity Not on file Sexual Orientation Not on file Last Filed Vital Signs Vital Sign Reading Time Taken Comments Blood Pressure 140/80 08/18/2025 11:02 AM [employer] Pulse 77 08/18/2025 10:31 AM [employer] Temperature 36.7 C (98 F) 08/18/2025 10:31 AM [employer] Respiratory Rate 15 08/18/2025 10:31 AM [employer] Oxygen Saturation 99% 08/18/2025 10:31 AM [employer] Inhaled Oxygen Concentration - - Weight 86.2 kg (190 lb) 08/18/2025 10:31 AM [employer] Height 167.6 cm (5' 6) 05/15/2025 1:58 PM CDT Body Mass Index 30.67 05/15/2025 1:58 PM CDT Plan of Treatment Upcoming Encounters Date Type Department Care Team (Late st Contact Info) Description 11/26/2025 11:00 AM [employer] [facility] - [place] [address] [place] [phone] Montserrat Akins PA-C [address] [place] [address] Health Maintenance Due Date Last Done Comments ASCVD Statin 1960 Colorectal Cancer Screening Colonoscopy (10 Years) 1958 Kidney Health Evaluation 1958 Diabetes: Retinopathy Eye Exam 1976 Hepatitis A Vaccines (1 of 2 - Risk 2-dose series) 1977 Zoster Vaccines (1 of 2) 2008 Annual Medicare Wellness Visit 2023 COVID-19 Vaccine ( season) 2025 06/15/2024, 09/08/2023, 07/18/2022, Additional history exists Influenza Adult (#1) 2025 06/15/2024, 09/08/2023, 08/10/2022, Additional history exists ASCVD LDL 08/06/2025 08/06/2024 Lipid Panel 08/06/2025 08/06/2024 Hemoglobin A1C 11/18/2025 08/18/2025, 05/02, 05/12/2025, Additional history exists DTaP, Tdap and Td Vaccines (3 - Td or Tdap) 08/31/2026 08/31/2016, 10/02/2003 RSV Immunization or 60+ Years Completed 09/28/2023 Pneumococcal Vaccine: 50+ Years Completed 08/01/2024 Hepatitis C Completed 08/06/2024 PHQ-2 (Physician [place]) Completed 03/27/2025 AAA SCREENING Completed 04/16/2025 Meningococcal B Vaccine Aged Out No l onger eligible based on patient's age to complete this topic Meningococcal Vaccine Aged Out No chase bhavesh eligible based on patient's age to complete this topic RSV Immunizations Under 20 Months Aged Out No longer eligible based on patient's age to complete this topic Medical Devices Implanted Type Area Derrick Boat Runner Device Identifier Shelf Expiration Date Model / Serial / Lot Perfix Light Plug Mesh For Tension Free Hernia Repair Implanted:Qty: 1 on 02/27/2025 by Nicole Zambrano MD at [facility] Right: [employer] 03/29/2027 [id number] / / [id number] Perfix Light Plug Mesh For Tension Free Groin Hernia Repair Implanted:Qty: 1 on 02/27/2025 by Nicole Zambrano MD at [facility] Left: Groin [employer] 06/29/2029 [id number] / / [id number] Explanted Type Area Derrick Boat Runner Device Identifier Shelf Expiration Date Model / Serial / Lot Perfix Light Plug Mesh For Tension Free Groin Hernia Repair Explanted:Qty: 1 on 02/27/2025 at [facility] Right: Groin [employer] 10/29/2025 [id number] / / [id number] Procedures Procedure Name Priority Date/Time Associated Diagnosis Comments COLLECT.CAPILLARY (FNGR,HEEL,EAR) Routine 08/18/2025 10:58 AM [employer] Type 2 diabetes mellitus with hyperglycemia, without long-term current use of insulin ([facility]/HCC HHS/HCC) HEMOGLOBIN, GLYCOSYLATED Routine 08/18/2025 Type 2 diabetes mellitus with hyperglycemia, without long-term current use of insulin (CMS/HCC HHS/HCC) CT ABD+PEL WO CON Routine 04/16/2025 9:1 7 AM CDT S/P inguinal hernia repair HEPATITIS C ANTIBODY W/RFX TO HCV RNA Routine 08/06/2024 12:20 PM [employer] Need for hepatitis C screening test LIPID PANEL Routine 08/06/2024 12:20 PM [employer] Screening, lipid from Last 3 Months or Most Recently Relevant to Health Maintenance Results * HEMOGLOBIN, GLYCOSYLATED (08/18/2025) HGB A1C 9.3 % [facility],[place] BLOOD VENOUS BLOOD SPECIMEN / Unknown 08/18/2025 us Montserrat Akins PA-C LABORATORY Final Resu lt [facility],[place] [address] [place] [address], [place] [phone] * CT ABD+PEL WO CON (04/16/2025 9:17 AM CDT) Anatomical Region Laterality Modality Abdomen Computed Tomogra phy 04/16/2025 8:40 PM CDT Addenda Addendum by Grey Pride MD on 04/16/2025 9:03 PM CDT [facility] [address] [place] [address] Peritoneum/mesentery/omentum: There is no free fluid or free air. 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 Ordered By: NICOLE ZAMBRANO Interpreted By: Grey Pride MD, 04/16/2025 8:59 PM Impressions 04/16/2025 8:45 PM CDT IMPRESSION: 1. There is a 3.0 x 1.4 x 2.7 cm postoperative right inguinal fluid collection. Findings represent postoperative seroma, evolving hematoma or abscess. 2. Postsurgical changes from left inguinal hernia repair is also noted. No left inguinal postoperative fluid collection is identified. 3. Prominent bilateral inguinal lymph nodes, likely reactive. 4. Hepatomegaly with diffuse hepatic steatosis. Ordered By: NICOLE ZAMBRANO Interpreted By: Grey Pride MD, 04/16/2025 8:40 PM Narrative 04/16/2025 8:45 PM CDT [facility] [address] [place] [address] PROCEDURE: CT ABD+PEL WO CON HISTORY: Left groin pain. History of hernia repair. TECHNIQUE: Helical CT of the abdomen and pelvis was performed without intravenous contrast. A dose lowering technique was used for this procedure, which may include, but is not limited to, dose reduction technique, automated exposure control, the use of iterative reconstruction, and ALARA (As Low As Reasonably Achievable) / Image Gently techniques. COMPARISON: CT pelvis without contrast, 10/10/2024. FINDINGS CT ABDOMEN/PELVIS: Lower thorax: There is subsegmental atelectasis in the lower lobes. The heart is normal in size. Liver: The liver is enlarged with diffuse hepatic steatosis. Biliary tree: The gallbladder is present. There is no biliary ductal dilatation. Spleen: The spleen is upper limits of normal in size. Pancreas: The pancreas is normal in size. There are no pancreatic calcifications. The pancreatic duct is not dilated. Adrenal glands: The adrenal glands are normal in size and shape. Kidneys: There is no hydronephrosis. No renal stones are seen. Lymph nodes: Abdomen: There is no abdominal adenopathy. Pelvis: There is no pelvic adenopathy. Prominent bilateral lymph nodes measuring up to 9 mm short axis. Vasculature: There is no abdominal aortic aneurysm. Atherosclerotic calcification is seen. Peritoneum/mesentery/omentum: There is no free fluid or free air. GI tract: There is no bowel obstruction. There is no abnormal. There is no abnormal bowel wall thickening to suggest acute inflammation. Pelvic urogenital structures:The bladder is grossly unremarkable. The prostate is present. Body wall: There are degenerative changes in the spine. No aggressive osseous lesions identified bilateral hip degenerative changes. There are postoperative changes from bilateral inguinal hernia repair. There is a 3.0 x 1.4 x 2.7 cm postoperative right inguinal fluid collection. No left inguinal fluid collection is identified. Limitations: Evaluation of the solid parenchymal organs and vasculature is limited due to lack of intravenous contrast. Alex: (S/I) = series number / image number Procedure Note Grey Pride MD - 04/16/2025 [facility] [address] [place] [address] PROCEDURE: CT ABD+PEL WO CON HISTORY: Left groin pain. History of hernia repair. TECHNIQUE: Helical CT of the abdomen and pelvis was performed withoutintravenous contrast. A dose lowering technique was used for this procedure, which may include,but is not limited to, dose reduction technique, automated exposurecontrol, the use of iterative reconstruction, and ALARA (As Low AsReasonably Achievable) / Image Gently techniques. COMPARISON: CT pelvis without contrast, 10/10/2024. FINDINGS CT ABDOMEN/PELVIS: Lower thorax: There is subsegmental atelectasis in the lower lobes. Theheart is normal in size. Liver: The liver is enlarged with diffuse hepatic steatosis. Biliary tree: The gallbladder is present. There is no biliary ductaldilatation. Spleen: The spleen is upper limits of normal in size. Pancreas: The pancreas is normal in size. There are no pancreaticcalcifications. The pancreatic duct is not dilated. Adrenal glands: The adrenal glands are normal in size and shape. Kidneys: There is no hydronephrosis. No renal stones are seen. Lymph nodes: Abdomen: There is no abdominal adenopathy. Pelvis: There is no pelvic adenopathy. Prominent bilateral lymph nodesmeasuring up to 9 mm short axis. Vasculature: There is no abdominal aortic aneurysm. Atheroscleroticcalcification is seen. Peritoneum/mesentery/omentum: There is no free fluid or free air. GI tract: There is no bowel obstruction. There is no abnormal. There isno abnormal bowel wall thickening to suggest acute inflammation. Pelvic urogenital structures:The bladder is grossly unremarkable. Theprostate is present. Body wall: There are degenerative changes in the spine. No aggressiveosseous lesions identified bilateral hip degenerative changes. There arepostoperative changes from bilateral inguinal hernia repair. There is a3.0 x 1.4 x 2.7 cm postoperative right inguinal fluid collection. No leftinguinal fluid collection is identified. Limitations: Evaluation of the solid parenchymal organs and vasculature islimited due to lack of intravenous contrast. Alex: (S/I) = series number / image number IMPRESSION: 1. There is a 3.0 x 1.4 x 2.7 cm postoperative right inguinal fluidcollection. Findings represent postoperative seroma, evolving hematoma orabscess. 2. Postsurgical changes from left inguinal hernia repair is also noted.No left inguinal postoperative fluid collection is identified. 3. Prominent bilateral inguinal lymph nodes, likely reactive. 4. Hepatomegaly with diffuse hepatic steatosis. Ordered By: NICOLE ZAMBRANO Interpreted By: Grey Pride MD, 04/16/2025 8:40 PM us Nicole Zambrano MD CT Edited Result - Final * HEPATITIS C ANTIBODY W/RFX TO HCV RNA (08/06/2024 12:20 PM [employer]) Pathologist [facility] HEPATITIS C AB Non Reactive Non Reacti [facility] 1 INTERPRETATION Comment [facility] 1 Comment: Not infected with HCV unless early or acute infection is suspected (which may be delayed in an immunocompromised individual), or other evidence exists to indicate HCV infection. 08/06/2024 12:2 0 PM [employer] 08/06/2024 Narrative [facility] - 08/07/2024 2:12 PM [employer] Performed at: [facility] [id number] [employer]: Elan Alexander PhD, Phone: [phone] us Montserrat Akins PA-C LABORATORY Final Resu lt [facility] [address] [place] [address] [facility] 1 * (ABNORMAL) LIPID PANEL (08/06/2024 12:20 PM [employer]) Pathologist [facility] CHOLESTEROL 83(L) 100 - 199 mg/dL [facility] 1 TRIGLYCERIDES 89 0 - 149 mg/dL [facility] 1 HDL 37(L) >39 mg/dL [facility] 1 VLDL CALCULATION 18 5 - 40 mg/dL [facility] 1 LDL (CALCULATED) 28 0 - 99 mg/dL [facility] 1 08/06/2024 12:2 0 PM [employer] 08/06/2024 Narrative [facility] - 08/07/2024 2:12 PM [employer] Performed at: - [facility] [id number] [employer]: Elan Alexander PhD, Phone: [phone] us Montserrat Akins PA-C LABORATORY Final Resu lt [facility] [address] [place] [address] [facility] 1 from Last 3 Months or Most Recently Relevant to Health Maintenance Insurance MEDICARE [facility] Care Teams Shift Superintendent Relationship Specialty Start Date End Date Montserrat Akins PA-C [address] [place] [id number] PCP - General PHYSICIAN DIVER PUMPER 08/01/24
--- OUTSIDE RECORDS SUMMARY | 2025-09-06 10:57 | XMS_ITS | Data Portability ---
Author Organization [facility] [employer], Main Office Address [address] [place] [address] Assessment No assessment recorded. Plan of Treatment Reminders Order Date Submit Date Provider Last Modified By Organization Details Last Modified Time Details Appointments None recorded. Lab glycohemog lobin, total, blood 2023 024 [facility] (Lab), [address] [place], [address], 4 15:41:02 hemoglobin A1C, fingerstic k [address] [place], [place], [address], 4 15:22:19 PSA, total, serum or plasma 2022 023 [facility] (Lab), [address] [place], [address], 3 19:53:57 hemoglobin A1C, fingerstic k [address] [place], [place], [address], 3 11:37:47 microalbum in, urine 2022 023 [facility] (Lab), [address] [place], [address], 3 18:58:17 lipid panel, serum 2022 023 [facility] (Lab), [address] [place], [address], 3 18:59:23 CMP, serum or plasma 2022 023 [facility] (Lab), [address] [place], [address], 3 18:59:29 Referral None recorded. Procedures None recorded. Surgeries None recorded. Imaging None recorded. Medication Orders gabapentin [address] [facility] [address] [place] [address], [address], 4 12:35:23 valacyclov ir 1 gram tablet [address] [facility] [address] [place], [address], 4 12:51:17 Depo-Medro l 80 mg/mL suspension for injection 2023 024 [email or web address] Not available 14:37:34 amoxicilli n 875 mg-potassi um clavulanat e 125 mg tablet 2023 024 [email or web address] [facility]/Pharmacy #2510, [address] [place], [address], 4 12:30:01 ibuprofen 800 mg tablet 2023 024 [facility]/Pharmacy #2510, [address] [place], [address], 4 11:35:40 Trulicity 0.75 mg/0.5 mL subcutaneo us pen injector 2023 024 [email or web address] 00 [facility]/Pharmacy #2510, [address] [place], [address], 4 11:38:08 allopurino l 300 mg tablet 2023 024 [facility] #2510, [address] [place], [address], 4 11:05:27 metformin ER 500 mg tablet,ext ended release [address] [address] [place], [address], 4 11:08:06 Ozempic 2 mg/dose (8 mg/3 mL) subcutaneo us pen injector 2023 024 [facility] [address] [place], [address], 4 11:20:36 Patient TargetsNo targets recorded. Patient Instructions Encounter Date Encounter Id Patient Instructions Last Modified By Organization Details Last Modified Time 02/06/2024 [id number] finish antibioti c . [email or web address] Not available 02/14/2024 16:48:38 Reason for Referral None Reported. Results Created Date Observation Date Name Description Value Unit Range Abnormal Flag Note LastModifiedBy Organization Detail LastModifiedTime 04/20/2004/20/2023 MICRO ALBUM IN RANDO M URINE microalbumin , urine 26.3 mg/L 0.0-16 .6 high Not Available [facility] (Lab) [address] [place], [address], 04/20/2023 18:58:17 04/20/20 23 04/20/2023 LIPID PANEL cholesterol 66 mg/dL 140-19 9 low NIH AARON NSUS RECOM MENDA TION FOR SHAHEEN STERO L: ADULT CHILD LOW RISK: <200 <170 BORDE RLINE : <200- 239 ----- HIGH RISK: >240 >200 Not Available [facility] (Lab) [address] [place], [address], 04/20/2023 18:59:23 04/20/20 23 04/20/2023 LIPID PANEL triglyceride s 63 mg/dL 0-150 NIH AARON NSUS REPOR T RECOM MENDA TION FOR TRIGL YCERI PAOLA: ADULT CHILD LOW RISK: <150 ----- BODER LINE: 150-1 99 ----- HIGH RISK: >200 ----- Not Available [facility] (Lab) [address] [place], [address], 04/20/2023 18:59:23 04/20/20 23 04/20/2023 LIPID PANEL HDL cholesterol 33 mg/dL 40- low Not Available [facility] (Lab) [address] [place], [address], 04/20/2023 18:59:23 04/20/20 23 04/20/2023 LIPID PANEL [...] WILL NOT BE REPOR NICOLETTE. Not Available [facility] (Lab) [address] [place], [address], 04/20/2023 18:59:23 04/20/20 23 04/20/2023 COMPR EHENS MACHO METAB OLIC PANEL sodium 138 mmol/ L 137-14 5 Not Available [facility] (Lab) [address] [place], [address], 04/20/2023 18:59:28 04/20/20 23 04/20/2023 COMPR EHENS MACHO METAB OLIC PANEL potassium 4.8 mmol/ L 3.5-5. 1 Not Available [facility] (Lab) [address] [place], [address], 04/20/2023 18:59:28 04/20/20 23 04/20/2023 COMPR EHENS MACHO METAB OLIC PANEL chloride 101 mmol/ L 98-107 Not Available [facility] (Lab) [address] [place], [address], 04/20/2023 18:59:28 04/20/20 23 04/20/2023 COMPR EHENS MACHO METAB OLIC PANEL carbon dioxide 27 mmol/ L 22-30 Not Available [facility] (Lab) [address] [place], [address], 04/20/2023 18:59:28 04/20/20 23 04/20/2023 COMPR EHENS MACHO METAB OLIC PANEL anion gap 14.8 mmol/ L 14-22 Not Available [facility] (Lab) [address] [place], [address], 04/20/2023 18:59:28 04/20/20 23 04/20/2023 COMPR EHENS MACHO METAB OLIC PANEL glucose 138 mg/dL 70-99 high Not Available [facility] (Lab) [address] [place], [address], 04/20/2023 18:59:28 04/20/20 23 04/20/2023 COMPR EHENS MACHO METAB OLIC PANEL BUN 10 mg/dL 8-19 Not Available [facility] (Lab) [address] [place], [address], 04/20/2023 18:59:28 04/20/20 23 04/20/2023 COMPR EHENS MACHO METAB OLIC PANEL creatinine 0.61 mg/dL 0.66-1 .25 low Not Available [facility] (Lab) [address] [place], [address], 04/20/2023 18:59:28 04/20/20 23 04/20/2023 COMPR EHENS MACHO METAB OLIC PANEL GFR >60 Refer ence Range : [place] GFR Healt hy Adult : >60 [...] calcu lator is avail able on the [facility] websi te: [email or web address] :[email or web address] [email or web address] brad/[email or web address] sullivan s/[email or web address] mo qi/gf r_cal culat or Not Available [facility] (Lab) [address] [place], [address], 04/20/2023 18:59:28 04/20/20 23 04/20/2023 COMPR EHENS MACHO METAB OLIC PANEL alkaline phosphatase 81 U/L 38-126 Not Available [facility] (Lab) [address] [place], [address], 04/20/2023 18:59:28 04/20/20 23 04/20/2023 COMPR EHENS MACHO METAB OLIC PANEL alanine aminotransfe rase 25 U/L 0-50 Not Available [facility] (Lab) [address] [place], [address], 04/20/2023 18:59:28 04/20/20 23 04/20/2023 COMPR EHENS MACHO METAB OLIC PANEL aspartate aminotransfe rase 32 U/L 15-46 Not Available [facility] (Lab) [address] [place], [address], 04/20/2023 18:59:28 04/20/20 23 04/20/2023 COMPR EHENS MACHO METAB OLIC PANEL bilirubin, total 0.40 mg/dL 0.20-1 .30 Not Available [facility] (Lab) [address] [place], [address], 04/20/2023 18:59:28 04/20/20 23 04/20/2023 COMPR EHENS MACHO METAB OLIC PANEL calcium 9.1 mg/dL 8.4-10 .2 Not Available [facility] (Lab) [address] [place], [address], 04/20/2023 18:59:28 04/20/20 23 04/20/2023 COMPR EHENS MACHO METAB OLIC PANEL total protein 6.7 g/dL 6.3-8. 2 Not Available [facility] (Lab) [address] [place], [address], 04/20/2023 18:59:28 04/20/20 23 04/20/2023 COMPR EHENS MACHO METAB OLIC PANEL albumin 3.9 g/dL 3.0-4. 4 Not Available [facility] (Lab) [address] [place], [address], 04/20/2023 18:59:28 04/20/20 23 04/20/2023 COMPR EHENS MACHO METAB OLIC PANEL globulin 2.8 g/dL 2.6-4. 2 Not Available [facility] (Lab) [address] [place], [address], 04/20/2023 18:59:28 04/20/20 23 04/20/2023 COMPR EHENS MACHO METAB OLIC PANEL A/G ratio 1.4 ratio 1.0-2. 0 Not Available [facility] (Lab) [address] [place], [address], 04/20/2023 18:59:28 04/20/20 23 04/20/2023 PSA SCREE N PSA medicare screen 1.61 NG/mL 0.00-4 .00 Not Available [facility] (Lab) [address] [place], [address], 04/20/2023 19:53:57 04/20/20 23 04/20/2023 hemog lobin A1C, finge rstic k HgbA1C 6.7 Not Available [address] [place], [place], [address], 04/20/2023 11:25:49 10/10/19 24 10/10/2023 hemog lobin A1C, finge rstic k HgbA1C 7.8 Not Available [address] [place], [place], [address], 10/10/2023 11:00:19 03/11/20 24 03/11/2024 MRI, head + neck + orbit s, w/wo contr ast No observ ation record ed. [email or web address] [facility] [address] [place], [address], 08/26/2024 11:22:21 03/11/20 24 03/11/2024 MRI, head + neck + orbit s, w/wo contr ast No observ ation record ed. [email or web address] [facility] [address] [place], [address], 08/23/2024 17:14:08 Result Notes None recorded. Problems Name Problem SNOMED Code Status Onset Date Resolution Date Notes Provider Name and Address Organization Details Recorded Time Pain in throat 282483239 Active Not Available [facility] 01/24/202 4 06:55:23 Lumbar sprain 726612954 Active Not Available [facility] 4 06:55:23 Pneumonia 664399874 Active Not Available [facility] 4 06:55:23 Fluid level behind tympanic membrane Active Not Available [employer] 4 06:55:23 Hyperurice josep 64422253 Active Not Available [employer] 4 06:55:23 Sinusitis 82597352 Active Not Available [facility] 4 06:55:23 Hypertensi ve disorder 00202205 Active Not Available [employer] 4 06:55:23 Fever 671867837 Active Not Available [facility] 4 06:55:23 Hemorrhoid s 94886198 Active Not Available [facility] 4 06:55:23 Diabetes mellitus 82086226 Active Not Available [facility] 4 06:55:23 Posterior rhinorrhea 10649569 Active Not Available [facility] 4 06:55:23 Fatigue 37208153 Active Not Available [facility] 4 06:55:23 Obese 529967054 Active 2017 Not Available [facility] 4 06:55:23 Essential hypertensi on 43036592 Active 2017 Not Available [facility] 4 06:55:23 Gout 12924995 Active 2017 Not Available [facility] 4 06:55:23 Steatotic liver disease 971502459 Active 2017 Not Available [facility] 4 06:55:23 Onychomyco sis 644158429 Active 2017 Not Available [facility] 4 06:55:23 Retinal disorder 90980111 Active 2018 Not Available [facility] 4 06:55:23 Pain in left knee Active 2020 Not Available [facility] 4 06:55:23 Uncontroll ed type 2 diabetes mellitus 242840481 Active 2020 Not Available [facility] 4 06:55:23 Pain in left sacroiliac joint 5488377093908 9102 Active 2020 Not Available [facility] 4 06:55:23 Chronic sinusitis 79401083 Active 2021 Not Available [facility] 4 06:55:23 Chronic maxillary sinusitis 22892403 Active 2021 Not Available [facility] 4 06:55:23 Right upper quadrant pain 111128552 Active 2022 Not Available [facility] 4 06:55:23 Type 2 diabetes mellitus without complicati on 684405058 Active 2022 Not Available [facility] 4 06:55:23 Hyperlipid emia 45451978 Active 2022 Not Available [facility] 4 06:55:23 Headache 26339919 Active 2022 Not Available [facility] 4 06:55:23 Lesion of tongue 415259365 Active 2022 Not Available [facility] 4 06:55:23 Acute otitis media 4145647 Active 2023 BRYAN Sinclair [address], [place], [address] , [employer] 4 11:34:07 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 Procedures Surgical History Date Name Laterality Status Provider Name and Address Organization Details Recorded Time 05/30/20 22 ENDOSCOPY, NASAL/SINUS, W/ MAXILLARY ANTROSTOMY & TISSUE REMOVAL (SURG) completed Not Available [facility] 11/30/2022 01:08:29 Colonoscopy completed Not Available [facility] 11/30/2022 00:53:09 Orthopedic Surgery completed Not Available [facility] 11/30/2022 00:53:09 Imaging Results None recorded. Procedure Notes None recorded. Medical Equipment None Reported. Allergies Allergen ID Allergen Name Allergen Category Reaction Reaction Severity Criticality Documentation Date Start Date Code Code System Note Provider Name and Address Organization Details Recorded Time 9729 iodine medicatio n Not available Not available Not available 11/30/2022 5933 RxNorm Not Available [facility] 3 01:08:07 Medications Name [...] mg base)/3 mL nebulizatio n soln active mec#; 0487- 0201- 03 Not Available Not Available [...] Not Available Not Available No t Available [employer]ance Ultra2 Meter kit 07/09 completed Not Available Not Available Not Available lidocaine (PF) 10 mg/mL (1 %) injection solution In office injection administe red by the provider 11/20 completed [facility]: 0409- 4276- 17 Not Available Not Available [...] weight Body temperature Heart rate Oxygen saturation Systolic And Diastolic Provider Name and Address Organization Details Last Updated DateTime 4 165.1 cm 31.8 kg/m2 03711.1 4 g 97.5 [degF] 75 /min 98 % 138/84 mm[Hg] Evangelina Sims MA [facility] [employer] [facility] 4 10:57:27 Date Recorded Body height Body mass index (BMI) Body weight Body temperature Respiratory rate Heart rate Oxygen saturation Systolic And Diastolic Provider Name and Address Organization Details Last Updated DateTime 4 165.1 cm 30.8 kg/m2 63695.5 9 g 98.5 [degF] 16 /min 93 /min 96 % 130/88 mm[Hg] Milagro Ludwig RN [facility] [employer] [facility] 4 11:16:22 Date Recorded Body height Body mass index (BMI) Body weight Body temperature Heart rate Oxygen saturation Respiratory rate Systolic And Diastolic Provider Name and Address Organization Details Last Updated DateTime 4 165.1 cm 29.3 kg/m2 26906.2 6 g 98.5 [degF] 85 /min 96 % 16 /min 168/88 mm[Hg] Milagro Ludwig RN [facility] [employer] [facility] 4 12:31:57 Date Recorded Body height Body mass index (BMI) Body weight Body temperature Heart rate Oxygen saturation Respiratory rate Systolic And Diastolic Provider Name and Address Organization Details Last Updated DateTime 4 165.1 cm 29.5 kg/m2 66229.8 5 g 98.1 [degF] 79 /min 97 % 16 /min 158/82 mm[Hg] Milagro Ludwig RN [facility] [employer] [facility] 4 12:16:22 Date Recorded Body height Body mass index (BMI) Body weight Body temperature Heart rate Oxygen saturation Systolic And Diastolic Provider Name and Address Organization Details Last Updated DateTime 3 165.1 cm 29.5 kg/m2 41682.8 5 g 98.1 [degF] 78 /min 97 % 130/80 mm[Hg] Maame Holloway , [place] [employer] [facility] [employer] 11:08:05 Social History Question Answer Notes LastModified by Aloqa Details LastModified Time Tobacco Smoking Status Current Every Day Smoker smokes cigars 2pd Jade Andres minh, [facility] [employer] [facility] 01/19/2023 10:09:39 What Is Your Level Of Caffeine Consumption? Heavy [id number] Information not available 11/30/2022 How Much Tobacco Do You Chew? None [id number] Information not available 11/30/2022 In The 14 Days Before Symptom Onset, Have You Had Close Contact With A Laboratory-confir med COVID-19 While That Case Was Ill? No [email or web address] Information not available 01/19/2023 In The 14 Days Before Symptom Onset, Have You Had Close Contact With A Person Who Is Under Investigation For COVID-19 While That Person Was Ill? No [email or web address] Information not available 01/19/2023 What Type Of Diet Are You Following? REGULAR [id number] Information not available 11/30/2022 Which Illicit Or Recreational Drugs Have You Used? None [email or web address] Information not available 01/19/2023 How Many Years Have You Smoked Tobacco? 15 Information not available 01/19/2023 Sex: Unknown Functional Status Question Answer Note LastModified by [employer] Details LastModified Time What is your level of alcohol consumption? None [id number] Information not available 11/30/2022 Do you or have you ever used smokeless tobacco? Never used smokeless tobacco [id number] Information not available 11/30/2022 What is your occupation? Retired [email or web address] Information not available 01/19/2023 Do you or have you ever used e-cigarettes or vape? Never used electronic cigarettes [email or web address] Information not available 01/19/2023 Mental Status None recorded. Family History Relationship Description Onset Age of this Age Resolved Age Notes LastModified by Organization Details LastModified Time Paternal Grandmother Diabetes mellitus [id number] Not available 11/30/2022 00:53:12 Father Malignant neoplasm of lung [email or web address] Not available 01/19 10:09:39 Sister Cerebrovascu lar accident [email or web address] Not available 10:09:39 Sister Atrial fibrillation [email or web address] Not available 10:09:39 Medical History Condition Response BLINDNESS N RHEUMATIC FEVER N KIDNEY STONES N BLADDER PROBLEMS N MRSA N OTHER # 1 N POLIO N LUNG DISEASE/DISORDER N HISTORY OF DRUG ABUSE N RADIATION / CHEMOTHERAPY N COPD N Other # 2 N BLOOD DISEASES [...] INSOMNIA N HIGH CHOLESTEROL / HYPERLIPIDEMIA N EYE PROBLEMS N HYPERTHYROIDISM N EATING DISORDER N EDEMA N CHRONIC PAIN SYNDROME N CAROTID BLOCKAGE N CONSTIPATION N BACK / NECK PROBLEMS N HAVE YOU BEEN HOSPITALIZED OR SEEN IN [facility] IN THE PAST YEAR ? N [...] DISORDER N ALZHEIMER'S DISEASE N PAIN N DEMENTIA N HERPES N SEIZURES/EPILEPSY N HEADACHES/MIGRAINES N VASCULAR DISEASE N PACEMAKER N DIZZINESS N HEART DISEASE/HEART PROBLEMS N KIDNEY DISEASE N SCARLET FEVER N MULTIPLE SCLEROSIS N DEVELOPMENTAL OR BEHAVIORAL DISORDERS N MENTAL DISORDER/ILLNESS N CANCER: SPECIFY N CARDIAC ARRHYTHMIA N PNEUMONIA N ATRIAL FIBRILLATION N Gall Stones N PULMONARY EMBOLISM N AUTOIMMUNE DISEASE N Immunizations Vaccine Type Date Status Note Provider Nam e and Address Organization Details Recorded Time SARS-COV-2 (COVID-19) vaccine, UNSPECIFIED completed Not Available [facility] 10/25/2023 06:55:24 Influenza, split virus, quadrivalent, preservative 6 completed Not Available [facility] 10/25/2023 06:55:24 DTaP, unspecified formulation 4 completed Not Available [facility] 10/25/2023 06:55:24 Tdap 6 completed Not Available [facility] 10/25/2023 06:55:24 Past Encounters Encounter ID Performer Location Encounter Start Date Encounter Closed Date Diagnosis/Indication Diagnosis SNOMED-CT Code Diagnosis ICD10 Code Diagnosis IMO Codes Diagnosis Note [id number] Choco Cisneros MD [facility] [place] [address] [place] [address] 12/10/2020 00:00:00 12/10/2020 11:45:51 [id number] Jose Antonio Diego MD [address] [address] 04/21/2021 00:00:00 04/21/2021 13:05:06 [id number] Jose Antonio Diego MD [address] [address] 05/05/2021 00:00:00 09/23/2021 12:20:44 [id number] Ahmet Lockhart [facility] [place] [address] [place] [address] 02/15/2022 00:00:00 02/15/2022 11:51:43 [id number] Carlos Perdomo MD [facility] [address] [facility] [place] [address] 04/08/2022 00:00:00 04/08/2022 17:59:50 [id number] Ahmet Lockhart MD [facility] [place] [address] [place] [address] 04/21/2022 00:00:00 04/21/2022 11:45:36 [id number] Carlos Perdomo MD [facility] Kyle chinchilla [address] [place] [address] [place] [address] 05/24/2022 00:00:00 05/24/2022 12:53:51 [id number] Ahmet Lockhart MD [facility] [place] [address] [place] [address] 06/09/2022 00:00:00 06/09/2022 11:34:52 [id number] Carlos Perdomo MD [facility] Kyle chinchilla [address] [place] [address] [place] [address] 07/21/2022 00:00:00 07/21/2022 12:17:49 [id number] Carlos Perdomo MD [facility] Kyle chinchilla [address] [place] [address] [place] [address] 10/21/2022 00:00:00 10/21/2022 18:04:54 [id number] Carlos Perdomo MD [facility] Kyle chinchilla [address] [place] [address] [place] [address] 11/30/2022 12:33:31 11/30/2022 13:49:24 Right upper quadrant pain 790381659 R10.11 Use prilosec otc. [id number] Carlos Perdomo MD [facility] Kyle chinchilla [address] [place] [address] [place] [address] 01/19/2023 10:09:07 01/19/2023 10:33:11 Uncontrolled type 2 diabetes mellitus 419968337 E11.65 A1C is 9% will increase ozempic to 2 mg weekly Will see back in 3 months. Essential hypertension 42811500 I10 BP recheck is 140/80. Monitor away from here and take BP meds. [id number] Carlos Perdomo MD [facility] Kyle chinchilla [address] [place] [address] [place] [address] 04/20/2023 10:57:13 04/20/2023 11:31:28 Type 2 diabetes mellitus without complication 347154314 E11.9 A1C is 6.7% Continue same meds. Hyperlipidemia 83387803 E78.5 Screening for malignant neoplasm of prostate 784659383 Z12.5 Headache 82575155 R51.9 Use heat to eye and take NSAIDs as needed. Lesion of tongue 2027899 05 K14.9 Gargles with warm salt water and use anbesol [id number] Carlos Perdomo MD [facility] Kyle lladrianna [address] [place] [address] [place] [address] 10/10/2023 10:47:12 10/10/2023 11:16:08 Type 2 diabetes mellitus without complication 338841288 E11.9 Gout 58287377 M10.9 Essential hypertension 98999077 I10 Hyperlipidemia 53221033 E78.5 [id number] Jose Antonio Diego MD [facility] Kyle chinchilla [address] [place] [address] [place] [address] 01/26/2024 11:03:25 01/26/2024 11:51:14 Type 2 diabetes mellitus without complication 815949107 E11.9 Acute otitis media 12657 03 H66.91 Essential hypertension 86479011 I10 Hyperlipidemia 29111169 E78.5 Hyperuricemia 14254325 E 79.0 Obese 870889413 E66.9 [id number] Jose Antonio Diego MD [facility] Kyle chinchilla [address] [place] [address] [place] [address] 02/06/2024 12:20:39 02/06/2024 13:08:45 Acute otitis media 8023553 H66.91 Miranda's palsy 161871621 G 51.0 [id number] Jose Antonio Diego MD [facility] Kyle chinchilla [address] [place] [address] 02/20/2024 12:02:24 02/20/2024 12:39:58 Essential hypertension 23799362 I10 Steatotic liver disease 424434699 K76.0 Hyperlipidemia 79133465 E78.5 Gout 42854605 M10.9 Miranda's palsy 776518994 G 51.0 Health Concerns Section Related Observation LastModified by Organization Detai ls LastModified Time None Recorded Concern Status LastModified by Organization Details LastModified Time None Recorded Advance Directives Directive None Recorded Payers Insurance Date Sequence Insurance Name Policy Number Policy Reyes Covered Member ID Reyes Member ID Guarantor Name 07/15/2024 1 [place] Bienvenido Trent [id number] Bienvenido Trent 07/15/2024 [facility] Bienvenido Trent SELF SELF Bienvenido Trent 07/16/2024 2 [facility] (MEDICARE SUPPLEMENT) Bienvenido Trent [id number] Bienvenido Trent 07/15/2024 1 [place] [id number] Bienvenido Trent [id number] Bienvenido Trent Notes Date Note Type [...] eye hurts. Carlos Perdomo MD [address], [employer] [place], [address], [employer] [facility] [employer] 04/20/2023 20:12:05 10/10/2023 text/html ROS as noted in the HPI has an eye exam, in November every year, out of ozempic a month BRYAN Sinclair [address] [employer] [employer] [place], [address], [employer] 10/14/2023 11:30:56 01/26/2024 text/html ROS as noted in the HPI ears hurt, full , no fever BRYAN Sinclair [address] [employer] [place], [address], [facility] [employer] [facility] [employer] [facility] 02/03/2024 21:06:24 02/06/2024 text/html ROS as noted in the HPI right side of face weak , able to close eyelid BRYAN Sinclair [address], [facility] [address], [place], [address], [facility] [employer] [facility] [employer] [facility] 02/14/2024 16:49:05 02/20/2024 text/html ROS as noted in the HPI no change BRYAN Sinclair [address], [facility] [address], [place], [address], [facility] [employer] [facility] [employer] [facility] 03/11/2024 17:24:09
[2025-09-06 11:03] VITALS: BP 150/70; PULSE 78; RESP 28; TEMP 36.4; O2SAT 94
--- NOTE | 2025-09-06 11:10 | ED.URI ---
HPI - URI/Sore Throat General Chief Complaint: Upper Respiratory Infection Stated Complaint: URI Time Seen by Provider: 09/06/25 11:06 Source: patient and RN notes reviewed Mode of arrival: ambulatory Limitations: no limitations History of Present Illness HPI Narrative: 65-year-old male presents with concern for cough, general malaise, fatigue. He reports he has also had sinus pain and pressure for about 5 days. Reports he has been sleeping upright. He reports he has felt fevers but did not take his temperature. He has taken Tylenol. 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 MD elicited complaint: cough Related Data Home Medications ?Medication ?Instructions ?Recorded ?Confirmed ?Last Taken ?Type allopurinol 100 mg tablet 100 tablet PO BID 04/05/22 04/04/25 04/03/25 History amlodipine 10 mg-valsartan 320 mg 1 tablet PO DAILY 04/05/22 04/04/25 04/03/25 History tablet dapagliflozin propanediol 10 mg 1 tablet PO DAILY 04/05/22 04/04/25 04/03/25 History tablet (Farxiga) metformin 500 mg tablet,extended 2 tablet PO BID 04/05/22 04/04/25 04/03/25 History release 24 hr Allergies Allergy/AdvReac Type Severity Reaction Status Date / Time iodine Allergy Swelling Verified 09/06/25 11:04 of the Eye shellfish derived Allergy Swelling Verified 09/06/25 11:04 of the Eye Review of Systems Review of Systems: CONSTITUTIONAL: Reports malaise, fatigue EYES: Denies visual changes, redness, or discharge. ENT: Reports rhinorrhea, congestion, sinus pain CARDIOVASCULAR: Denies chest pain, palpitations, or edema. RESPIRATORY: Reports cough. Denies dyspnea. GASTROINTESTINAL: Denies abdominal pain, nausea, vomiting, diarrhea SKIN: Denies rash or itching. MUSCULOSKELETAL: Reports myalgia. NEUROLOGIC: Denies headache. All systems reviewed & are unremarkable except as noted in HPI and below PMFSH Social History Social History Smoking status: Current every day smoker Tobacco type: cigars Second hand tobacco smoke exposure: Yes Additional smoking assessment comments: 2 cigars daily Alcohol intake: never Substance use: never Living arrangements: alone Gender identity (if verbalized by the patient): Male Spiritual care concerns: No Comments At time of signature, agree with nursing past medical, surgical, social and family history. There is no relevant family history pertinent to the presenting complaint Exam Narrative: GENERAL: Well-appearing, well-nourished, and in no acute distress. HEAD: Normocephalic EYES: PERRLA, conjunctivae clear ENT: Nares clear. Mucous membranes moist. TM pearly medrano with dull light reflex bilaterally; no tragal tenderness. Oropharynx not erythematous without lesions. Tonsils not enlarged and without exudate, no drooling, no hoarseness, no trismus, uvula midline. NECK: Supple. No lymphadenopathy CHEST: Bilateral lower lobe rhonchi, breath sounds diminished on the left. No wheezing, rales, or stridor. No respiratory distress, speaks in full sentences. HEART: Regular rate and rhythm. No murmur heard. SKIN: Warm, dry, no rash. NEURO: Alert and oriented x3. PSYCH: Normal mood and affect Course Course Level of Care: Express Care Visit Vital Signs Vital signs: Vital Signs Temperature 97.5 F L 09/06/25 11:03 Pulse Rate 78 09/06/25 11:03 Respiratory Rate 28 H 09/06/25 11:03 Blood Pressure 150/70 H 09/06/25 11:03 Pulse Oximetry 94 09/06/25 11:03 Oxygen Delivery Room Air 09/06/25 11:03 Temperature 97.5 F L 09/06/25 11:03 Pulse Rate 78 09/06/25 11:03 Respiratory Rate 28 H 09/06/25 11:03 Blood Pressure 150/70 H 09/06/25 11:03 Pulse Oximetry 94 09/06/25 11:03 Oxygen Delivery Room Air 09/06/25 11:03 MDM Differential Diagnosis Differential Diagnosis: I evaluated this patient in the express care. History is obtained from patient who is an independent historian and physical exam was performed.? Available medical records were reviewed. ? Exam findings and relevant testing show no acute concerns or changes; patient is non-toxic appearing and is in no distress. ? Differential diagnosis considered: Saul virus, strep pharyngitis, allergic rhinitis, upper respiratory tract infection, sinusitis, rhinosinusitis, nasopharyngitis. viral pharyngitis, otitis media, otitis externa, pneumonia, bronchitis, viral cough syndrome, viral syndrome, and influenza. Differential diagnosis and treatment plan were discussed with the patient. Patient agrees with discussion and after shared medical decision making agrees with plan of care. All questions were answered to the patient's satisfaction. Patient is appropriate for outpatient treatment and follow-up. Discharge Plan Discharge Clinical Impression: Pneumonia Patient Disposition: Home Condition: Stable Instructions: Antibiotic Form, Pneumonia (ED) Additional Instructions: Your x-ray shows pneumonia. We will treat with an antibiotic, but you need to make an appoint with your primary care doctor to get a follow-up x-ray and about 1 month. Pneumonia is a lung infection that can cause a fever, cough, and trouble breathing. Please continue all antibiotics as directed until complete. Nutrition is important - eat small frequent meals. Get lots of rest and drink fluids. Call your Primary Care Doctor upon arrival home from the hospital and make a follow-up appointment in 3-5 days. If your cough worsens, you develop a persistent fever you develop shaking chills, a fast heartbeat, trouble breathing and/or feel you are are breathing much faster than usual, call your Primary Care Doctor or go to the ER. Make sure you wash your hands frequently. Patient Language: Estonian Prescriptions: New azithromycin [Zithromax Z-Roly] 250 mg tablet See Rx Instructions .ROUTE .COMPLEX Qty: 6 0RF Rx Instructions: take 500 mg today (day 1), then 250 mg for 4 days (days 2-5) amoxicillin-pot clavulanate 875-125 mg tablet 1 tablet PO Q12H 10 Days Qty: 20 0RF No Action allopurinol 100 mg tablet 100 tablet PO BID metformin 500 mg tablet extended release 24 hr 2 tablet PO BID amlodipine-valsartan 10-320 mg tablet 1 tablet PO DAILY dapagliflozin propanediol [Farxiga] 10 mg tablet 1 tablet PO DAILY cephalexin 500 mg capsule 500 mg PO Q6H Qty: 28 0RF Follow-up/Referrals: Tashi,Montserrat Phoenix PA-C [Primary Care Provider] Time of Disposition: 11:34
== END 2025-09-06 11:37 | disposition home or self-care (01) ==
PROVIDERS: Emergency Provider Nurse Practitioner; PCP Physician Assistant
DX: J18.9 Pneumonia, unspecified organism (principal); F17.290 Nicotine dependence, other tobacco product, uncomplicated
CPT/HCPCS: 71046; 99213; G0463

== ENCOUNTER 2025-09-11 14:22 | Emergency (ER) | payer MEDICARE, SELFPAY ==
[2025-09-11 14:35] VITALS: BP 154/62; PULSE 73; RESP 24; TEMP 36; O2SAT 97
[2025-09-11 14:41] VITALS: BP 143/72; PULSE 74
[2025-09-11 14:42] VITALS: BP 151/75; PULSE 77
[2025-09-11 14:43] VITALS: BP 148/72; PULSE 79
--- NOTE | 2025-09-11 14:49 | ECG_ITS ---
Test Date: 2025-09-11 14:47:20 Measurements Intervals [place] Rate: 72 P: 59 [place]: 148 QRS: 18 QRSD: 94 T: 42 QT: 397 QTc: 437 Interpretive Statements SINUS RHYTHM BASELINE ARTIFACT- I, II, III, AVR, AVL, AVF NORMAL ECG No previous ECG available for comparison Electronically Signed On 09-11-2025 16:24:40 [employer] by Christopher Cervantes D.O.
--- NOTE | 2025-09-11 14:50 | ED.URI ---
HPI - URI/Sore Throat General Chief Complaint: Upper Respiratory Infection Stated Complaint: multi patient presents to the [facility] with complaints of feeling weird, after further questioning patient reports he feels queasy. noted that he was recently evaluated at this [facility] and diagnosed with pneumonia, noted being placed on Augmentin and azithromycin patient has been taking these medications as ordered and does feel better. continues to have a cough and some congestion. Denies fever, dizziness, shortness of breath, or headaches. Patient does report over the last few days did have some significant diarrhea with incontinence of stool while coughing or sneezing. noted this has resolved and at that time he had a loss of appetite and was not eating or drinking well. Today noted back to eating and drinking like normal. Denies chest pain or palpitations. patient did call primary care physician today but was told they do not have any appointments until September 18. Related Data Home Medications ?Medication ?Instructions ?Recorded ?Confirmed ?Last Taken ?Type allopurinol 100 mg tablet 100 tablet PO BID 04/05/22 04/04/25 04/03/25 History amlodipine 10 mg-valsartan 320 mg 1 tablet PO DAILY 04/05/22 04/04/25 04/03/25 History tablet dapagliflozin propanediol 10 mg 1 tablet PO DAILY 04/05/22 04/04/25 04/03/25 History tablet (Farxiga) metformin 500 mg tablet,extended 2 tablet PO BID 04/05/22 04/04/25 04/03/25 History release 24 hr Allergies Allergy/AdvReac Type Severity Reaction Status Date / Time iodine Allergy Swelling Verified 09/06/25 11:04 of the Eye shellfish derived Allergy Swelling Verified 09/06/25 11:04 of the Eye Review of Systems Constitutional: Constitutional: Reports as per HPI, Denies chills, Denies fatigue, Denies fever(s) and Denies weakness Comments: feeling weird Eyes: Eyes: Reports as per HPI, Denies change in vision and Denies photophobia ENT: Reports as per HPI, Denies vertigo, Denies dizziness, Denies nasal congestion and Denies sore throat Cardiovascular: Cardiovascular: Reports as per HPI, Denies chest pain, Denies rapid heart rate, Denies radiating jaw, neck or arm pain and Denies slow heart rate Respiratory: Respiratory: Reports as per HPI, Denies chest congestion, Reports cough, Denies dyspnea and Denies wheezing Gastrointestinal: Gastrointestinal: Reports no additional gastrointestinal complaints Genitourinary: Genitourinary: Reports no additional male genitourinary complaints Musculoskeletal: Musculoskeletal: Reports as per HPI, Denies back pain, Denies myalgias, Denies arthralgias, Denies joint swelling and Denies muscle cramps Integumentary/Breasts: Skin/Breast: Reports as per HPI, Denies pruritus, Denies erythema, Denies rash and Denies skin ulcer Neurologic: Reports as per HPI, Denies confusion, Denies vertigo, Denies dizziness, Denies syncope, Denies headache(s), Denies focal weakness, Denies numbness and Denies weakness Psychiatric: Psychiatric: Reports no additional psychiatric complaints Endocrine: Endocrine: Reports no additional endocrine complaints Hematologic/Lymphatic: Hematologic/Lymphatic: Reports no additional hematologic/lymphatic complaints Allergic/Immunologic: Allergic/Immunologic: Reports no additional allergic/immunologic complaints PMFSH Social History Social History Smoking status: Current every day smoker Tobacco type: cigars Second hand tobacco smoke exposure: Yes Additional smoking assessment comments: 2 cigars daily Alcohol intake: never Substance use: never Living arrangements: alone Gender identity (if verbalized by the patient): Male Spiritual care concerns: No Exam Const: General: healthy appearing and no acute distress Nutritional Appearance: well nourished Orientation/consciousness: patient oriented x3 Limitations: no limitations HENMT: Head: normal to inspection Ears: external ears normal and TM's normal bilaterally Face/Nose/Sinus: Normal external nose present and Normal nares present Face and sinus: normal facial exam and sinuses nontender Mouth: Yes Normal oral and palatal mucosa present, Yes lip normal and Yes moist mucous membranes Throat: posterior oropharynx normal Eyes: Conjunctivae: conjunctivae normal Pupils: Equal, round and reactive pupils present EOM: EOMs intact bilaterally Direct Ophthalmoscopy: no photophobia Neck: Neck: normal visual inspection and no lymphadenopathy Resp: Effort & Inspection: normal respiratory effort Auscultation: clear to auscultation bilaterally Cardio: Rate: regular rate Rhythm: regular rhythm GI: GI Palp: Yes Soft to palpation, No Tenderness to palpation present (GI), No Guarding due to palpation present (GI) and No Rigid due to palpation Auscultation: normal bowel sounds Skin: General skin exam: normal color Rashes: no rashes Wounds: no wounds Neuro: General: patient oriented x3 and moves all extremities Cranial nerves: Yes Nystagmus not present Speech: normal speech Gait exam (Neuro): Normal gait present Extrem: General: normal to inspection, no clubbing, cyanosis or edema and no pedal edema Psych: Mental Status: mental status grossly normal Affect: normal affect Attitude: cooperative Course Course Level of Care: Express Care Visit Vital Signs Vital signs: Vital Signs Temperature 96.8 F L 09/11/25 14:35 Pulse Rate 73 09/11/25 14:35 Respiratory Rate 24 H 09/11/25 14:35 Blood Pressure 154/62 H 09/11/25 14:35 Pulse Oximetry 97 09/11/25 14:35 Oxygen Delivery Room Air 09/11/25 14:35 Temperature 96.8 F L 09/11/25 14:35 Pulse Rate 73 09/11/25 14:35 Respiratory Rate 24 H 09/11/25 14:35 Blood Pressure 154/62 H 09/11/25 14:35 Pulse Oximetry 97 09/11/25 14:35 Oxygen Delivery Room Air 09/11/25 14:35 [facility] MDM Narrative Medical decision making narrative: nonspecific symptoms. Upon further investigation patient reports feeling queasy and having some significant diarrhea the last couple days but today has feeling better and has been eating and drinking as normal. Pneumonia/ upper respiratory symptoms are all improving. EKG normal orthostatic vitals normal. Denies chest pain, shortness a breath, wheezing, or heart palpitations. Educated patient on several signs and symptoms or any worsening symptoms should be evaluated in the emergency room The patient was evaluated by myself in the [facility]. History is obtained from patient who is an independent historian and physical exam was performed. Available medical records were reviewed at this time. Exam findings show no acute concerns or changes; patient is non-toxic appearing and is in no distress. Patient is appropriate for outpatient treatment and follow-up. I have evaluated and discussed social determinants of health with the patient that could potentially impact subsequent diagnosis and treatment plans. Differential diagnosis and treatment plan were discussed with the patient. Patient agrees with discussion and after shared medical decision making agrees with plan of care. All questions were answered to the patient's satisfaction. Differential Diagnosis Differential Diagnosis: sinusitis, viral gastroenteritis, fatigue, worsening pneumonia Medical Records I have reviewed the following patient records and this information was taken into consideration when formulating the assessment and plan.: previous labs, previous ER visits, previous hospitalizations and previous clinic visits Lab Data MDM Lab Attestation statement: I personally reviewed the patient's lab results. (from previous visit ) ECG Data EKG #1: ECG completion date: 09/11/25 ECG completion time: 14:47 Interpretation: normal EKG normal rate and sinus rhythm Discharge Plan Discharge Clinical Impression: Diarrhea Patient Disposition: Home Condition: Stable Instructions: Antibiotic Form, Dehydration (ED) Additional Instructions: your EKG and the Urgent Care is normal all of your vital signs and your assessment are normal would recommend increasing your water intake and watching closely to your symptoms if you begin to feel worse have any dizziness, shortness of breath, or increasing fatigue / weakness go to the emergency room for evaluation. Recommend follow-up with primary care as soon as possible Patient Language: [place] Islander Prescriptions: No Action azithromycin [Zithromax Z-Roly] 250 mg tablet See Rx Instructions .ROUTE .COMPLEX Qty: 6 0RF Rx Instructions: take 500 mg today (day 1), then 250 mg for 4 days (days 2-5) amoxicillin-pot clavulanate 875-125 mg tablet 1 tablet PO Q12H 10 Days Qty: 20 0RF allopurinol 100 mg tablet 100 tablet PO BID metformin 500 mg tablet extended release 24 hr 2 tablet PO BID amlodipine-valsartan 10-320 mg tablet 1 tablet PO DAILY dapagliflozin propanediol [Farxiga] 10 mg tablet 1 tablet PO DAILY cephalexin 500 mg capsule 500 mg PO Q6H Qty: 28 0RF Follow-up/Referrals: Tashi,Montserrat Phoenix PA-C [Primary Care Provider] Time of Disposition: 14:56
--- OUTSIDE RECORDS SUMMARY | 2025-09-11 17:20 | XMS_ITS | Data Portability ---
Author Organization [facility] [employer], Main Office Address [address] [place] [address] Assessment No assessment recorded. Plan of Treatment Reminders Order Date Submit Date Provider Last Modified By Organization Details Last Modified Time Details Appointments None recorded. Lab glycohemog lobin, total, blood 2023 024 [facility] (Lab), [address] [place], [address], 4 15:41:02 hemoglobin A1C, fingerstic k [address] [place], [place], [address], 4 15:22:19 PSA, total, serum or plasma 2022 023 [facility] (Lab), [address] [place], [address], 3 19:53:57 hemoglobin A1C, fingerstic k [address] [place], [place], [address], 3 11:37:47 microalbum in, urine 2022 023 [facility] (Lab), [address] [place], [address], 3 18:58:17 lipid panel, serum 2022 023 [facility] (Lab), [address] [place], [address], 3 18:59:23 CMP, serum or plasma 2022 023 [facility] (Lab), [address] [place], [address], 3 18:59:29 Referral None recorded. Procedures None recorded. Surgeries None recorded. Imaging None recorded. Medication Orders gabapentin 300 mg capsule 2023 024 [facility] [address] [place] [address], [address], 4 12:35:23 valacyclov ir 1 gram tablet 2023 024 [facility] [address] [place], [address], 4 12:51:17 Depo-Medro l 80 mg/mL suspension for injection 2023 024 [email or web address] Not available 14:37:34 amoxicilli n 875 mg-potassi um clavulanat e 125 mg tablet 2023 024 [email or web address] [facility]/Pharmacy #2510, [address] [place], [address], 4 12:30:01 ibuprofen 800 mg tablet 2023 024 [facility]/Pharmacy #2510, [address] [place], [address], 4 11:35:40 Trulicity 0.75 mg/0.5 mL subcutaneo us pen injector 2023 024 [email or web address] 00 [facility]/Pharmacy #2510, [address] [place], [address], 4 11:38:08 allopurino l 300 mg tablet 2023 024 [facility]/Pharmacy #2510, [address] [place], [address], 4 11:05:27 metformin ER 500 mg tablet,ext ended release 24 hr 2023 024 [facility] [address] [place], [address], 4 11:08:06 Ozempic 2 mg/dose (8 mg/3 mL) subcutaneo us pen injector 2023 024 [facility] [address] [place], [address], 4 11:20:36 Patient TargetsNo targets recorded. Patient Instructions Encounter Date Encounter Id Patient Instructions Last Modified By Organization Details Last Modified Time 02/06/2024 [id number] finish antibioti c . [email or web address] Not available 02/14/2024 16:48:38 Reason for Referral None Reported. Results Created Date Observation Date Name Description Value Unit Range Abnormal Flag Note LastModifiedBy Organization Detail LastModifiedTime 04/20/2004/20/2023 MICRO ALBUM IN RANDO M URINE microalbumin , urine 26.3 mg/L 0.0-16 .6 high Not Available [facility] (Lab) [address] [place], [address], 04/20/2023 18:58:17 04/20/20 23 04/20/2023 LIPID PANEL cholesterol 66 mg/dL 140-19 9 low NIH AARON NSUS RECOM MENDA TION FOR SHAHEEN STERO L: ADULT CHILD LOW RISK: <200 <170 BORDE RLINE : <200- 239 ----- HIGH RISK: >240 >200 Not Available [facility] (Lab) [address] [place], [address], 04/20/2023 18:59:23 04/20/20 23 04/20/2023 LIPID PANEL triglyceride s 63 mg/dL 0-150 NIH AARON NSUS REPOR T RECOM MENDA TION FOR TRIGL YCERI PAOLA: ADULT CHILD LOW RISK: <150 ----- BODER LINE: 150-1 99 ----- HIGH RISK: >200 ----- Not Available [facility] (Lab) [address] [place], [address], 04/20/2023 18:59:23 04/20/20 23 04/20/2023 LIPID PANEL HDL cholesterol 33 mg/dL 40- low Not Available [facility] (Lab) [address] [place], [address], 04/20/2023 18:59:23 04/20/20 23 04/20/2023 LIPID PANEL [...] WILL NOT BE REPOR NICOLETTE. Not Available [facility] (Lab) [address] [place], [address], 04/20/2023 18:59:23 04/20/20 23 04/20/2023 COMPR EHENS MACHO METAB OLIC PANEL sodium 138 mmol/ L 137-14 5 Not Available [facility] (Lab) [address] [place], [address], 04/20/2023 18:59:28 04/20/20 23 04/20/2023 COMPR EHENS MACHO METAB OLIC PANEL potassium 4.8 mmol/ L 3.5-5. 1 Not Available [facility] (Lab) [address] [place], [address], 04/20/2023 18:59:28 04/20/20 23 04/20/2023 COMPR EHENS MACHO METAB OLIC PANEL chloride 101 mmol/ L 98-107 Not Available [facility] (Lab) [address] [place], [address], 04/20/2023 18:59:28 04/20/20 23 04/20/2023 COMPR EHENS MACHO METAB OLIC PANEL carbon dioxide 27 mmol/ L 22-30 Not Available [facility] (Lab) [address] [place], [address], 04/20/2023 18:59:28 04/20/20 23 04/20/2023 COMPR EHENS MACHO METAB OLIC PANEL anion gap 14.8 mmol/ L 14-22 Not Available [facility] (Lab) [address] [place], [address], 04/20/2023 18:59:28 04/20/20 23 04/20/2023 COMPR EHENS MACHO METAB OLIC PANEL glucose 138 mg/dL 70-99 high Not Available [facility] (Lab) [address] [place], [address], 04/20/2023 18:59:28 04/20/20 23 04/20/2023 COMPR EHENS MACHO METAB OLIC PANEL BUN 10 mg/dL 8-19 Not Available [facility] (Lab) [address] [place], [address], 04/20/2023 18:59:28 04/20/20 23 04/20/2023 COMPR EHENS MACHO METAB OLIC PANEL creatinine 0.61 mg/dL 0.66-1 .25 low Not Available [facility] (Lab) [address] [place], [address], 04/20/2023 18:59:28 04/20/20 23 04/20/2023 COMPR EHENS MACHO METAB OLIC PANEL GFR >60 Refer ence Range : [place] ge GFR Healt hy Adult : >60 [...] calcu lator is avail able on the [facility] websi te: [email or web address] :[email or web address] s/[email or web address] mo qi/gf r_cal culat or Not Available [facility] (Lab) [address] [place], [address], 04/20/2023 18:59:28 04/20/20 23 04/20/2023 COMPR EHENS MACHO METAB OLIC PANEL alkaline phosphatase 81 U/L 38-126 Not Available [facility] (Lab) [address] [place], [address], 04/20/2023 18:59:28 04/20/20 23 04/20/2023 COMPR EHENS MACHO METAB OLIC PANEL alanine aminotransfe rase 25 U/L 0-50 Not Available [facility] (Lab) [address] [place], [address], 04/20/2023 18:59:28 04/20/20 23 04/20/2023 COMPR EHENS MACHO METAB OLIC PANEL aspartate aminotransfe rase 32 U/L 15-46 Not Available [facility] (Lab) [address] [place], [address], 04/20/2023 18:59:28 04/20/20 23 04/20/2023 COMPR EHENS MACHO METAB OLIC PANEL bilirubin, total 0.40 mg/dL 0.20-1 .30 Not Available [facility] (Lab) [address] [place], [address], 04/20/2023 18:59:28 04/20/20 23 04/20/2023 COMPR EHENS MACHO METAB OLIC PANEL calcium 9.1 mg/dL 8.4-10 .2 Not Available [facility] (Lab) [address] [place], [address], 04/20/2023 18:59:28 04/20/20 23 04/20/2023 COMPR EHENS MACHO METAB OLIC PANEL total protein 6.7 g/dL 6.3-8. 2 Not Available [facility] (Lab) [address] [place], [address], 04/20/2023 18:59:28 04/20/20 23 04/20/2023 COMPR EHENS MACHO METAB OLIC PANEL albumin 3.9 g/dL 3.0-4. 4 Not Available [facility] (Lab) [address] [place], [address], 04/20/2023 18:59:28 04/20/20 23 04/20/2023 COMPR EHENS MACHO METAB OLIC PANEL globulin 2.8 g/dL 2.6-4. 2 Not Available [facility] (Lab) [address] [place], [address], 04/20/2023 18:59:28 04/20/20 23 04/20/2023 COMPR EHENS MACHO METAB OLIC PANEL A/G ratio 1.4 ratio 1.0-2. 0 Not Available [facility] (Lab) [address] [place], [address], 04/20/2023 18:59:28 04/20/20 23 04/20/2023 PSA SCREE N PSA medicare screen 1.61 NG/mL 0.00-4 .00 Not Available [facility] (Lab) [address] [place], [address], 04/20/2023 19:53:57 04/20/20 23 04/20/2023 hemog lobin A1C, finge rstic k HgbA1C 6.7 Not Available [address] [place], [place], [address], 04/20/2023 11:25:49 10/10/19 24 10/10/2023 hemog lobin A1C, finge rstic k HgbA1C 7.8 Not Available [address] [place], [place], [address], 10/10/2023 11:00:19 03/11/20 24 03/11/2024 MRI, head + neck + orbit s, w/wo contr ast No observ ation record ed. [facility] [address] [place], [address], 08/26/2024 11:22:21 03/11/20 24 03/11/2024 MRI, head + neck + orbit s, w/wo contr ast No observ ation record ed. [email or web address] [facility] [address] [place], [address], 08/23/2024 17:14:08 Result Notes None recorded. Problems Name Problem SNOMED Code Status Onset Date Resolution Date Notes Provider Name and Address Organization Details Recorded Time Pain in throat 043339396 Active Not Available [facility] 01/24/202 4 06:55:23 Lumbar sprain 833853508 Active Not Available [facility] 4 06:55:23 Pneumonia 390256990 Active Not Available [facility] 4 06:55:23 Fluid level behind tympanic membrane Active Not Available [employer] 4 06:55:23 Hyperurice josep 77372179 Active Not Available [employer] 4 06:55:23 Sinusitis 71020298 Active Not Available [facility] 4 06:55:23 Hypertensi ve disorder 00802736 Active Not Available [employer] 4 06:55:23 Fever 150929032 Active Not Available [facility] 4 06:55:23 Hemorrhoid s 96381547 Active Not Available [facility] 4 06:55:23 Diabetes mellitus 75165409 Active Not Available [facility] 4 06:55:23 Posterior rhinorrhea 40692073 Active Not Available [facility] 4 06:55:23 Fatigue 43404481 Active Not Available [facility] 4 06:55:23 Obese 778774969 Active 2017 Not Available [facility] 4 06:55:23 Essential hypertensi on 54301680 Active 2017 Not Available [facility] 4 06:55:23 Gout 04263057 Active 2017 Not Available [facility] 4 06:55:23 Steatotic liver disease 256732983 Active 2017 Not Available [facility] 4 06:55:23 Onychomyco sis 389588776 Active 2017 Not Available [facility] 4 06:55:23 Retinal disorder 48860248 Active 2018 Not Available [facility] 4 06:55:23 Pain in left knee Active 2020 Not Available [facility] 4 06:55:23 Uncontroll ed type 2 diabetes mellitus 747065323 Active 2020 Not Available [facility] 4 06:55:23 Pain in left sacroiliac joint 0031376689011 9102 Active 2020 Not Available [facility] 4 06:55:23 Chronic sinusitis 31901348 Active 2021 Not Available [facility] 4 06:55:23 Chronic maxillary sinusitis 00735241 Active 2021 Not Available [facility] 4 06:55:23 Right upper quadrant pain 425256450 Active 2022 Not Available [facility] 4 06:55:23 Type 2 diabetes mellitus without complicati on 751483091 Active 2022 Not Available [facility] 4 06:55:23 Hyperlipid emia 12461771 Active 2022 Not Available [facility] 4 06:55:23 Headache 48140329 Active 2022 Not Available [facility] 4 06:55:23 Lesion of tongue 783192036 Active 2022 Not Available [facility] 4 06:55:23 Acute otitis media 7680203 Active 2023 BRYAN Sinclair [address], [place], [address] , [employer] 4 11:34:07 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 Procedures Surgical History Date Name Laterality Status Provider Name and Address Organization Details Recorded Time 05/30/20 22 ENDOSCOPY, NASAL/SINUS, W/ MAXILLARY ANTROSTOMY & TISSUE REMOVAL (SURG) completed Not Available [facility] 11/30/2022 01:08:29 Colonoscopy completed Not Available [facility] 11/30/2022 00:53:09 Orthopedic Surgery completed Not Available [facility] 11/30/2022 00:53:09 Imaging Results None recorded. Procedure Notes None recorded. Medical Equipment None Reported. Allergies Allergen ID Allergen Name Allergen Category Reaction Reaction Severity Criticality Documentation Date Start Date Code Code System Note Provider Name and Address Organization Details Recorded Time 1403 iodine medicatio n Not available Not available Not available 11/30/2022 5933 RxNorm Not Available [facility] 3 01:08:07 Medications Name Sig Start Date [...] mg base)/3 mL nebulizatio n soln active txc#; 0487- 0201- 03 Not Available Not Available [...] Not Available Not Available No t Available [employer] Ultra2 Meter kit 07/09 completed Not Available Not Available Not Available lidocaine (PF) 10 mg/mL (1 %) injection solution In office injection administe red by the provider 11/20 completed [facility]: 0409- 4276- 17 Not Available Not Available [...] Updated DateTime 4 165.1 cm 31.8 kg/m2 00942.1 4 g 97.5 [degF] 75 /min 98 % 138/84 mm[Hg] Evangelina Sims MA [facility] [employer] [facility] 4 10:57:27 Date Recorded Body height Body mass index (BMI) Body weight Body temperature Respiratory rate Heart rate Oxygen saturation Systolic And Diastolic Provider Name and Address Organization Details Last Updated DateTime 4 165.1 cm 30.8 kg/m2 70328.5 9 g 98.5 [degF] 16 /min 93 /min 96 % 130/88 mm[Hg] Milagro Ludwig RN [facility] [employer] [facility] 4 11:16:22 Date Recorded Body height Body mass index (BMI) Body weight Body temperature Heart rate Oxygen saturation Respiratory rate Systolic And Diastolic Provider Name and Address Organization Details Last Updated DateTime 4 165.1 cm 29.3 kg/m2 69925.2 6 g 98.5 [degF] 85 /min 96 % 16 /min 168/88 mm[Hg] Milagro Ludwig RN [facility] [employer] [facility] 4 12:31:57 Date Recorded Body height Body mass index (BMI) Body weight Body temperature Heart rate Oxygen saturation Respiratory rate Systolic And Diastolic Provider Name and Address Organization Details Last Updated DateTime 4 165.1 cm 29.5 kg/m2 65600.8 5 g 98.1 [degF] 79 /min 97 % 16 /min 158/82 mm[Hg] Milagro Ludwig RN [facility] [employer] [facility] 4 12:16:22 Date Recorded Body height Body mass index (BMI) Body weight Body temperature Heart rate Oxygen saturation Systolic And Diastolic Provider Name and Address Organization Details Last Updated DateTime 3 165.1 cm 29.5 kg/m2 93864.8 5 g 98.1 [degF] 78 /min 97 % 130/80 mm[Hg] Maame Holloway , [place] [employer] [facility] [employer] 11:08:05 Social History Question Answer Notes LastModified by [employer] Details LastModified Time Tobacco Smoking Status Current Every Day Smoker smokes cigars 2pd Jade Andres minh, [facility] [employer] [facility] 01/19/2023 10:09:39 What Is Your Level Of Caffeine Consumption? Heavy [id number] Information not available 11/30/2022 How Much Tobacco Do You Chew? None [id number] Information not available 11/30/2022 In The 14 Days Before Symptom Onset, Have You Had Close Contact With A Laboratory-confir med COVID-19 While That Case Was Ill? No [email or web address] Information not available 01/19/2023 In The 14 Days Before Symptom Onset, Have You Had Close Contact With A Person Who Is Under Investigation For COVID-19 While That Person Was Ill? No [email or web address] Information not available 01/19/2023 What Type Of Diet Are You Following? REGULAR [id number] Information not available 11/30/2022 Which Illicit Or Recreational Drugs Have You Used? None [email or web address] Information not available 01/19/2023 How Many Years Have You Smoked Tobacco? 15 [email or web address] Information not available 01/19/2023 Sex: Unknown Functional Status Question Answer Note LastModified by [employer] Details LastModified Time What is your level of alcohol consumption? None [id number] Information not available 11/30/2022 Do you or have you ever used smokeless tobacco? Never used smokeless tobacco [id number] Information not available 11/30/2022 What is your occupation? Retired [email or web address] Information not available 01/19/2023 Do you or have you ever used e-cigarettes or vape? Never used electronic cigarettes [email or web address] Information not available 01/19/2023 Mental Status None recorded. Family History Relationship Description Onset Age of this Age Resolved Age Notes LastModified by Organization Details LastModified Time Paternal Grandmother Diabetes mellitus [id number] Not available 11/30/2022 00:53:12 Father Malignant neoplasm of lung [email or web address] Not available 01/19 10:09:39 Sister Cerebrovascu lar accident [email or web address] Not available 10:09:39 Sister Atrial fibrillation [email or web address] Not available 10:09:39 Medical History Condition Response [...] HAVE YOU BEEN HOSPITALIZED OR SEEN IN [facility] IN THE PAST YEAR ? N ATHEROSCLEROSIS [...] SARS-COV-2 (COVID-19) vaccine, UNSPECIFIED completed Not Available [facility] 10/25/2023 06:55:24 Influenza, split virus, quadrivalent, preservative 6 completed Not Available [facility] 10/25/2023 06:55:24 DTaP, unspecified formulation 4 completed Not Available [facility] 10/25/2023 06:55:24 Tdap 6 completed Not Available [facility] 10/25/2023 06:55:24 Past Encounters Encounter ID Performer Location Encounter Start Date Encounter Closed Date Diagnosis/Indication Diagnosis SNOMED-CT Code Diagnosis ICD10 Code Diagnosis IMO Codes Diagnosis Note [id number] Choco Cisneros MD [facility] [place] [address] [place] [address] 12/10/2020 00:00:00 12/10/2020 11:45:51 [id number] Jose Antonio Diego MD [address] [address] 04/21/2021 00:00:00 04/21/2021 13:05:06 [id number] Jose Antonio Diego MD [address] [address] 05/05/2021 00:00:00 09/23/2021 12:20:44 [id number] Ahmet Lockhart MD [facility] [place] [address] [place] [address] 02/15/2022 00:00:00 02/15/2022 11:51:43 [id number] Carlos Perdomo MD [facility] [address] [facility] [place] [address] 04/08/2022 00:00:00 04/08/2022 17:59:50 [id number] Ahmet Lockhart MD [facility] [place] [address] [place] [address] 04/21/2022 00:00:00 04/21/2022 11:45:36 [id number] Carlos Perdomo MD [facility] Kyle chinchilla [address] [place] [address] [place] [address] 05/24/2022 00:00:00 05/24/2022 12:53:51 [id number] Ahmet Lockhart MD [facility] [place] [address] [place] [address] 06/09/2022 00:00:00 06/09/2022 11:34:52 [id number] Carlos Perdomo MD [facility] [place] [employer] [address] [place] [address] [place] [address] 07/21/2022 00:00:00 07/21/2022 12:17:49 [id number] Carlos Perdomo MD [facility] Kyle ch[place]illa [address] [place] [address] [place] [address] 10/21/2022 00:00:00 10/21/2022 18:04:54 [id number] Carlos Perdomo MD [facility] [employer] [address] [place] [address] [place] [address] 11/30/2022 12:33:31 11/30/2022 13:49:24 Right upper quadrant pain 835819368 R10.11 Use prilosec otc. [id number] Carlos Perdomo MD [facility] Kyle ch[employer]illa [address] [place] [address] [place] [address] 01/19/2023 10:09:07 01/19/2023 10:33:11 Uncontrolled type 2 diabetes mellitus 856670739 E11.65 A1C is 9% will increase ozempic to 2 mg weekly Will see back in 3 months. Essential hypertension 85487897 I10 BP recheck is 140/80. Monitor away from here and take BP meds. [id number] Carlos Perdomo MD [facility] Kyle chinchilla [address] [place] [address] [place] [address] 04/20/2023 10:57:13 04/20/2023 11:31:28 Type 2 diabetes mellitus without complication 846544159 E11.9 A1C is 6.7% Continue same meds. Hyperlipidemia 66822282 E78.5 Screening for malignant neoplasm of prostate 746313078 Z12.5 Headache 62468030 R51.9 Use heat to eye and take NSAIDs as needed. Lesion of tongue 9252043 05 K14.9 Gargles with warm salt water and use anbesol [id number] Carlos Perdomo MD [facility] Kyle lladrianna [address] [place] [address] [place] [address] 10/10/2023 10:47:12 10/10/2023 11:16:08 Type 2 diabetes mellitus without complication 033176593 E11.9 Gout 17172989 M10.9 Essential hypertension 72206183 I10 Hyperlipidemia 93850100 E78.5 [id number] Jose Antonio Diego MD [facility] [place] [employer] [address] [place] [address] [place] [address] 01/26/2024 11:03:25 01/26/2024 11:51:14 Type 2 diabetes mellitus without complication 242025120 E11.9 Acute otitis media 28473 03 H66.91 Essential hypertension 33593981 I10 Hyperlipidemia 24761027 E78.5 Hyperuricemia 53156718 E 79.0 Obese 063135417 E66.9 [id number] Jose Antonio Diego MD [facility] Kyle ch[employer] [address] [place] [address] [place] [address] 02/06/2024 12:20:39 02/06/2024 13:08:45 Acute otitis media 9893807 H66.91 Miranda's palsy 810605333 G 51.0 [id number] Jose Antonio Diego MD [facility] Kyle chinchilla [address] [place] [address] 02/20/2024 12:02:24 02/20/2024 12:39:58 Essential hypertension 10515575 I10 Steatotic liver disease 345471929 K76.0 Hyperlipidemia 99356138 E78.5 Gout 97721561 M10.9 Miranda's palsy 083657477 G 51.0 Health Concerns Section Related Observation LastModified by Organization Detai ls LastModified Time None Recorded Concern Status LastModified by Organization Details LastModified Time None Recorded Advance Directives Directive None Recorded Payers Insurance Date Sequence Insurance Name Policy Number Policy Reyes Covered Member ID Reyes Member ID Guarantor Name 07/15/2024 1 [place] Bienvenido Trent [id number] Bienvenido Trent 07/15/2024 [facility] Bienvenido Trent SELF SELF Bienvenido Trent 07/16/2024 2 [facility] (MEDICARE SUPPLEMENT) Bienvenido Trent [id number] Bienvenido Trent 07/15/2024 1 [place] [id number] Bienvenido Trent [id number] Bienvenido Trent Notes Date Note Type [...] hurts. Carlos Perdomo MD [address], [employer], [place], [address], [employer] [facility] [employer] 04/20/2023 20:12:05 10/10/2023 text/html ROS as noted in the HPI has an eye exam, in November every year, out of ozempic a month BRYAN Sinclair [address] [employer], [place], [address], [employer] 10/14/2023 11:30:56 01/26/2024 text/html ROS as noted in the HPI ears hurt, full , no fever BRYAN Sinclair [address] [employer], [place], [address], [facility] [employer] [facility] [employer] [facility] 02/03/2024 21:06:24 02/06/2024 text/html ROS as noted in the HPI right side of face weak , able to close eyelid BRYAN Sinclair [address], [facility] [address], [place], [address], [facility] [employer] [facility] [employer] [facility] 02/14/2024 16:49:05 02/20/2024 text/html ROS as noted in the HPI no change BRYAN Sinclair [address], [facility] [address], [place], [address], [facility] [employer] [facility] [employer] [facility] 03/11/2024 17:24:09
== END 2025-09-11 15:01 | disposition home or self-care (01) ==
PROVIDERS: Emergency Provider Nurse Practitioner Family; PCP Physician Assistant
DX: R19.7 Diarrhea, unspecified (principal); F17.290 Nicotine dependence, other tobacco product, uncomplicated
CPT/HCPCS: 93005; 99213; G0463